=== PATIENT | female | born 1965 | race Caucasian/White ===

== ENCOUNTER → 2018-05-09 | Outpatient (CLI) | payer BC ==
[2015-05-01 17:55] VITALS: BP 164/97
[~2018-05-09] MED LIST: ZOLP10TA4 PO
--- NOTE | 2018-05-09 16:24 | RAD ---
MR of the left knee Indication: Left knee pain for 2 weeks. No known injury. Technique: The standard multiplanar sequences are obtained. FINDINGS: Artifact: No significant image degradation. Medial meniscus:Intact. Lateral meniscus: Intact. Anterior cruciate ligament: Intact Posterior cruciate ligament: Intact Medial collateral ligament: Intact. Lateral structures: * Iliotibial band: Intact. * Lateral collateral ligament: Intact. * Biceps femoris tendon: Intact * Popliteus tendon attachment: Intact Extensive mechanism: * Patellar tendon: Intact * Quadriceps tendon: Intact * Retinacular structures: Intact Fluid: Small joint effusion. Trace Reza's cyst. Mild disorganized fluid tracking along the posterior popliteus. Intra-articular bodies: None visualized Joint compartments * patellofemoral joint:Intact * medial compartment: Moderate to severe chondromalacia at the weightbearing medial femoral condyle with small subchondral cysts. * lateral compartment:Intact Bones: No significant lesion or acute fracture. Soft tissue: Mild edema within the infrapatellar fat. Impression: 1. 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 2. Mild fluid/hemorrhage tracking along the posterior popliteus muscle. Electronically signed by: Salbador Wylie MD (05/09/2018 4:21 PM) [facility]
== END | disposition home or self-care (01) ==
LOC: MRI 14:55
PROVIDERS: ATTEND Family Medicine Sports Medicine
DX: M17.12 Unilateral primary osteoarthritis, left knee (principal); M94.262 Chondromalacia, left knee; M25.462 Effusion, left knee; I10 Essential (primary) hypertension; R60.0 Localized edema; Z88.0 Allergy status to penicillin; Z90.710 Acquired absence of both cervix and uterus
CPT/HCPCS: 73721

== ENCOUNTER 2018-06-17 15:07 | Emergency (ER) | payer BC ==
[~2018-06-17] VITALS: Ht 170.2 cm; Wt 73.9 kg
--- NOTE | 2018-06-17 15:43 | PHYS DOC ---
Past Medical History Past Medical History: Hypertension Past Surgical History: Hysterectomy Additional Past Surgical Histo: carpal tunnel Alcohol Use: None Drug Use: None Adult General Chief Complaint Chief Complaint: HEADACHE HPI HPI Patient is a 53 year old [f__sex] who presents with [] Review of Systems Review of Systems Constitutional: Denies fever or chills [] Eyes: Denies change in visual acuity, redness, or eye pain [] HENT: Denies nasal congestion or sore throat [] Respiratory: Denies cough or shortness of breath [] Cardiovascular: No additional information not addressed in HPI [] GI: Denies abdominal pain, nausea, vomiting, bloody stools or diarrhea [] : Denies dysuria or hematuria [] Musculoskeletal: Denies back pain or joint pain [] Integument: Denies rash or skin lesions [] Neurologic: Denies headache, focal weakness or sensory changes [] Endocrine: Denies polyuria or polydipsia [] All other systems were reviewed and found to be within normal limits, except as documented in this note. Current Medications Current Medications Current Medications Medications (Trade) Dose Ordered Sig/Zeeshan Start Time Stop Time Status Last Admin Dose Admin Dexamethasone Sodium Phosphate (Decadron) 10 mg 1X ONCE 06/17/18 16:00 06/17/18 16:01 DC Diphenhydramine HCl (Benadryl) 25 mg 1X ONCE 06/17/18 16:00 06/17/18 16:01 DC Metoclopramide HCl (Reglan Vial) 10 mg 1X ONCE 06/17/18 16:00 06/17/18 16:01 DC Sodium Chloride 1,000 ml @ 1,000 mls/hr 1X ONCE 06/17/18 16:00 06/17/18 16:59 Allergies Allergies Allergies Coded Allergies Type Severity Reaction Last Updated Verified Penicillins Allergy Intermediate 03/10/14 Yes Physical Exam Physical Exam Constitutional: Well developed, well nourished, no acute distress, non-toxic appearance. [] HENT: Normocephalic, atraumatic, bilateral external ears normal, oropharynx moist, no oral exudates, nose normal. [] Eyes: PERRLA, EOMI, conjunctiva normal, no discharge. [] Neck: Normal range of motion, no tenderness, supple, no stridor. [] Cardiovascular:Heart rate regular rhythm, no murmur [] Lungs & Thorax: Bilateral breath sounds clear to auscultation [] Abdomen: Bowel sounds normal, soft, no tenderness, no masses, no pulsatile masses. [] Skin: Warm, dry, no erythema, no rash. [] Back: No tenderness, no CVA tenderness. [] Extremities: No tenderness, no cyanosis, no clubbing, ROM intact, no edema. [] Neurologic: Alert and oriented X 3, normal motor function, normal sensory function, no focal deficits noted. [] Psychologic: Affect normal, judgement normal, mood normal. [] Current Patient Data Vital Signs Vital Signs Date Time Temp Pulse Resp B/P (MAP) Pulse Ox O2 Delivery O2 Flow Rate FiO2 06/17/18 16:01 98.4 88 18 174/104 (127) 99 Room Air 98.4 Lab Values Laboratory Tests Test 06/17/18 15:20 06/17/18 15:40 Urine Collection Type Unknown Urine Color Yellow Urine Clarity Clear Urine pH 5.5 Urine Specific [place] 1.025 Urine Protein Negative mg/dL (NEG-TRACE) Urine Glucose (UA) Negative mg/dL (NEG) Urine Ketones (Stick) Negative mg/dL (NEG) Urine Blood Trace (NEG) Urine Nitrite Negative (NEG) Urine Bilirubin Negative (NEG) Urine Urobilinogen Dipstick 1.0 mg/dL (0.2 mg/dL) Urine Leukocyte Esterase Negative (NEG) Urine RBC 1-2 /HPF (0-2) Urine WBC 1-4 /HPF (0-4) Urine Squamous Epithelial Cells Few /LPF Urine Bacteria 0 /HPF (0-FEW) Urine Hyaline Casts Few /HPF Urine Mucus Mod /LPF White Blood Count 11.1 x10^3/uL (4.0-11.0) H Red Blood Count 4.66 x10^6/uL (3.50-5.40) Hemoglobin 13.4 g/dL (12.0-15.5) Hematocrit 39.1 % (36.0-47.0) Mean Corpuscular Volume 84 fL (79-100) Mean Corpuscular Hemoglobin 29 pg (25-35) Mean Corpuscular Hemoglobin Concent 34 g/dL (31-37) Red Cell Distribution Width 13.8 % (11.5-14.5) Platelet Count 335 x10^3/uL (140-400) Neutrophils (%) (Auto) 66 % (31-73) Lymphocytes (%) (Auto) 25 % (24-48) Monocytes (%) (Auto) 7 % (0-9) Eosinophils (%) (Auto) 1 % (0-3) Basophils (%) (Auto) 1 % (0-3) Neutrophils # (Auto) 7.4 x10^3uL (1.8-7.7) Lymphocytes # (Auto) 2.8 x10^3/uL (1.0-4.8) Monocytes # (Auto) 0.7 x10^3/uL (0.0-1.1) Eosinophils # (Auto) 0.1 x10^3/uL (0.0-0.7) Basophils # (Auto) 0.1 x10^3/uL (0.0-0.2) Sodium Level 142 mmol/L (136-145) Potassium Level 3.3 mmol/L (3.5-5.1) L Chloride Level 103 mmol/L (98-107) Carbon Dioxide Level 27 mmol/L (21-32) Anion Gap 12 (6-14) Blood Urea Nitrogen 19 mg/dL (7-20) Creatinine 0.9 mg/dL (0.6-1.0) Estimated GFR (Cockcroft-Gault) 65.8 BUN/Creatinine Ratio 21 (6-20) H Glucose Level 99 mg/dL (70-99) Calcium Level 9.7 mg/dL (8.5-10.1) Magnesium Level 2.4 mg/dL (1.8-2.4) Total Bilirubin 0.5 mg/dL (0.2-1.0) Aspartate Amino Transferase (AST) 24 U/L (15-37) Alanine Aminotransferase (ALT) 51 U/L (14-59) Alkaline Phosphatase 123 U/L (46-116) H Creatine Kinase 97 U/L (26-192) Creatine Kinase MB (Mass) 1.0 ng/mL (0.0-3.6) Creatine Kinase MB Relative Index 1.0 % (0-4) Troponin I Quantitative < 0.017 ng/mL (0.000-0.055) Total Protein 8.3 g/dL (6.4-8.2) H Albumin 4.2 g/dL (3.4-5.0) Albumin/Globulin Ratio 1.0 (1.0-1.7) Laboratory Tests 06/17/18 15:40 Laboratory Tests 06/17/18 15:40 EKG EKG @1524: NSR at 82bpm, NO ST elevation Radiology/Procedures Radiology/Procedures PROCEDURE: CT HEAD WO CONTRAST CT HEAD WO CONTRAST History: Headache, eye twitching, facial droop Comparison: July 23, 2008 Technique: Noncontrast CT imaging was performed of the head. Exposure: One or more of the following individualized dose reduction techniques were utilized for this examination: 1. Automated exposure control 2. Adjustment of the mA and/or kV according to patient size 3. Use of iterative reconstruction technique. Findings: No acute extra-axial or parenchymal hemorrhage is identified. There is no significant intra-axial mass effect, midline shift, or extra-axial fluid collection. The tabor-white differentiation of the major vascular territories is preserved. The ventricles, sulci, and cisterns are within normal limits in size and configuration. The mastoid air cells and the visualized paranasal sinuses are aerated. No acute calvarial abnormality is identified. Impression: 1. No acute intracranial abnormality is identified. Electronically signed by: Viral Zamudio MD (06/17/2018 4:01 PM) PROCEDURE: PORTABLE CHEST 1V Single view of the chest. 06/17/2018 3:43 PM Indication: weakness, cough Comparison: Chest radiograph January 23, 2017 Findings: There is no focal consolidation. There is no pleural effusion or pneumothorax. The cardiomediastinal silhouette and pulmonary vasculature are within normal limits. No acute osseous abnormalities are seen. Impression: No evidence of acute cardiopulmonary process. Electronically signed by: Heath Gomez MD (06/17/2018 4:07 PM) [facility] Course & Med Decision Making Course & Med Decision Making Pertinent Labs and Imaging studies reviewed. (See chart for details) [] Dragon Disclaimer Dragon Disclaimer This electronic medical record was generated, in whole or in part, using a voice recognition dictation system. Departure Departure Impression: Primary Impression: Headache Additional Impressions: Right facial numbness Right leg weakness Disposition: ADMITTED INPATIENT Admitting Physician: Renu Nye Condition: GUARDED Referrals: UNKNOWN PCP NAME (PCP) NIHSS Stroke Scale NIH Stroke Scale: NIH Stroke Scale Response (Comments) Value Level of Consciousness: 0 Alert/Responsive 0 LOC Questions: 0 Answers both correctly 0 LOC Commands: 0 Performs both tasks 0 Best Gaze: 0 Normal 0 Visual: 0 No visual loss 0 Facial Palsy: 0 Normal, symmetrical 0 Motor - Left Arm 0 No drift 0 Motor - Right Arm 0 No drift 0 Motor - Left Leg 0 No drift 0 Motor: Right Leg 1 Drift but can hold 1 Limb Ataxia: 0 Absent 0 Sensory: 1 Mid to moderate loss 1 Best Language: 0 Normal 0 Dysathria: 0 Normal 0 Extinction and Inattention: 0 Normal 0 Total 2 Problem Qualifiers Primary Impression: Headache Headache type: unspecified Headache chronicity pattern: unspecified pattern Intractability: intractable Qualified Codes: R51 - Headache ROBERTO ONEIL DO Jun 17, 2018 15:43
[2018-06-17 15:52] LABS: BILIRUBIN,URINE NEGATIVE (NEG); CLARITY,URINE CLEAR; COLOR,URINE YELLOW; NITRITE,URINE NEGATIVE (NEG); PH,URINE 5.5; PROTEIN,URINE NEGATIVE (NEG-TRACE)
--- NOTE | 2018-06-17 15:53 | EKG ---
[facility] [address] [place] [address] Test Date: 2018-06-17 Test Time: 15:24:52 Pat Name: ARACELY BERGER Department: Room: Gender: F Car Painter: : 1965 Requested By: ROBERTO ONEIL Order Number: [id number] Reading MD: Stevan Valencia MD Measurements Intervals [place] Rate: 81 P: 47 MT: 170 QRS: -2 QRSD: 80 T: 26 QT: 358 QTc: 421 Interpretive Statements SINUS RHYTHM Electronically Signed On 06-18-2018 10:08:02 CDT by Stevan Valencia MD
[2018-06-17 15:57] LABS: BASO # 0.1 x10^3/uL (0.0-0.2); BASO % 1 % (0-3); EOS # 0.1 x10^3/uL (0.0-0.7); EOS % 1 % (0-3); HEMATOCRIT 39.1 % (36.0-47.0); HEMOGLOBIN 13.4 g/dL (12.0-15.5); LYMPH # 2.8 x10^3/uL (1.0-4.8); LYMPH % 25 % (24-48); MEAN CORPUSCULAR HEMOGLOBIN 29 pg (25-35); MEAN CORPUSCULAR HGB CONC 34 g/dL (31-37); MEAN CORPUSCULAR VOLUME 84 fL (79-100); MONO # 0.7 x10^3/uL (0.0-1.1); MONO % 7 % (0-9); NEUT # 7.4 x10^3uL (1.8-7.7); NEUT % 66 % (31-73); PLATELET COUNT 335 x10^3/uL (140-400); RED BLOOD COUNT 4.66 x10^6/uL (3.50-5.40); RED CELL DISTRIBUTION WIDTH 13.8 % (11.5-14.5); WHITE BLOOD COUNT 11.1 x10^3/uL (4.0-11.0)
[2018-06-17] MEDS ORDERED: IV NORMAL SALINE 1000ML BAG 1,000 ML IV ONE (16:00)
[2018-06-17] MEDS ORDERED: DEXAMETHASONE SOD PHOS 20 MG/5 ML VIAL. IV ONE (16:00)
[2018-06-17] MEDS ORDERED: diphenhydrAMINE 50 MG/ML VIAL IVP ONE (16:00)
[2018-06-17] MEDS ORDERED: METOCLOPRAMIDE HCL 10 MG/2 ML VIAL. IV ONE (16:00)
[2018-06-17 16:05] LABS: BACTERIA,URINE 0 /HPF (0-FEW); SQUAMOUS EPITHELIAL CELL,UR FEW /LPF
--- NOTE | 2018-06-17 16:05 | RAD ---
CT HEAD WO CONTRAST History: Headache, eye twitching, facial droop Comparison: July 23, 2008 Technique: Noncontrast CT imaging was performed of the head. Exposure: One or more of the following individualized dose reduction techniques were utilized for this examination: 1. Automated exposure control 2. Adjustment of the mA and/or kV according to patient size 3. Use of iterative reconstruction technique. Findings: No acute extra-axial or parenchymal hemorrhage is identified. There is no significant intra-axial mass effect, midline shift, or extra-axial fluid collection. The tabor-white differentiation of the major vascular territories is preserved. The ventricles, sulci, and cisterns are within normal limits in size and configuration. The mastoid air cells and the visualized paranasal sinuses are aerated. No acute calvarial abnormality is identified. Impression: 1. No acute intracranial abnormality is identified. Electronically signed by: Viral Zamudio MD (06/17/2018 4:01 PM) [facility]
[2018-06-17 16:06] LABS: HYALINE CASTS, URINE FEW /HPF
--- NOTE | 2018-06-17 16:10 | RAD ---
Single view of the chest. 06/17/2018 3:43 PM Indication: weakness, cough Comparison: Chest radiograph January 23, 2017 Findings: There is no focal consolidation. There is no pleural effusion or pneumothorax. The cardiomediastinal silhouette and pulmonary vasculature are within normal limits. No acute osseous abnormalities are seen. Impression: No evidence of acute cardiopulmonary process. Electronically signed by: Heath Gomez MD (06/17/2018 4:07 PM) [facility]
[2018-06-17 16:11] LABS: CALCIUM 9.7 mg/dL (8.5-10.1); CREATININE 0.9 mg/dL (0.6-1.0); GFR 65.8; POTASSIUM 3.3 mmol/L (3.5-5.1)
[2018-06-17 16:17] LABS: ALBUMIN 4.2 g/dL (3.4-5.0); MAGNESIUM 2.4 mg/dL (1.8-2.4); TOTAL BILIRUBIN 0.5 mg/dL (0.2-1.0); TOTAL PROTEIN 8.3 g/dL (6.4-8.2)
[2018-06-17] MEDS ORDERED: POTASSIUM CHLORIDE 20 MEQ TABLET.ER. PO ONE (16:45)
[2018-06-17] MEDS ORDERED: ASPIRIN 325 MG TABLET PO ONE (16:45)
[2018-06-17] MEDS ORDERED: ONDANSETRON PF 4 MG/2 ML VIAL. IV PRN (16:45)
[2018-06-17] MEDS ORDERED: ZOLPIDEM 5 MG TABLET. PO PRN (17:00)
[2018-06-17] MEDS ORDERED: SUMAtriptan SUCC 6 MG/0.5 ML VIAL. SQ ONE (17:00)
[2018-06-17] MEDS ORDERED: SUMAtriptan SUCCINATE 25 MG TABLET PO PRN (17:00)
[2018-06-17 17:30] VITALS: BP 168/99
--- NOTE | 2018-06-17 17:38 | PDOC2 ---
CONSULT Date of Consult Date of Consult DATE: 06/17/18 TIME: 17:34 Reason for Consult Reason for Consult: headache, eval for admit Referring Physician Referring Physician: ER Source Source: Chart review, Patient History of Present Illness Reason for Visit: right sided headache behind the right eye. stabbing pain with a more constant nature. with some blurry vision, no aura. then, after headache, she had left sided weakness, arm more than leg, but was transient, and possibly when the headache was the worse. opiate pain med given in ER for headache, and her symptoms resolved, she reported full resolution and wanted to go home, signed out AMA Past Medical History Cardiovascular: No pertinent hx Pulmonary: No pertinent hx GI: No pertinent hx Family History Family History: No Significant Social History Drugs: None Current Problem List Problem List Problems Medical Problems: (1) Headache Status: Acute (2) Right facial numbness Status: Acute (3) Right leg weakness Status: Acute Current Medications Current Medications Current Medications Sodium Chloride 1,000 ml @ 1,000 mls/hr 1X ONCE IV Last administered on at 16:36; Start 06/17/18 at 16:00; Stop 06/17/18 at 16:59; Status DC Dexamethasone Sodium Phosphate (Decadron) 10 mg 1X ONCE IV Last administered on 06/17/18at 16:37; Start 06/17/18 at 16:00; Stop 06/17/18 at 16:01; Status DC Metoclopramide HCl (Reglan Vial) 10 mg 1X ONCE IV Last administered on at 16:36; Start 06/17/18 at 16:00; Stop 06/17/18 at 16:01; Status DC Diphenhydramine HCl (Benadryl) 25 mg 1X ONCE IVP Last administered on at 16:37; Start 06/17/18 at 16:00; Stop 06/17/18 at 16:01; Status DC Aspirin (Yvette Aspirin) 325 mg 1X ONCE PO ; Start 06/17/18 at 16:45; Stop 06/17 at 16:46; Status DC Ondansetron HCl (Zofran) 4 mg PRN Q8HRS PRN IV NAUSEA/VOMITING; Start 06/17/18 at 16:45; Stop 06/18/18 at 16:44 Potassium Chloride (Klor-Con) 40 meq 1X ONCE PO ; Start 06/17/18 at 16:45; Stop 06/17/18 at 16:46; Status DC Zolpidem Tartrate (Ambien) 5 mg PRN QHS PRN PO INSOMNIA; Start 06/17/18 at 17: 00 Sumatriptan Succinate (Imitrex) 6 mg 1X ONCE SQ ; Start 06/17/18 at 17:00; Stop 06/17/18 at 17:01; Status DC Sumatriptan Succinate (Imitrex) 25 mg Q8HRS PRN PO headache; Start 06/17/18 at 17:00 Active Scripts Active Reported Zolpidem Tartrate 10 Mg Tablet 10 Mg PO PRN QHS PRN Allergies Allergies: Coded Allergies: Penicillins (Verified Allergy, Intermediate, 03/10/14) ROS General: YES: Fatigue, Malaise PSYCHOLOGICAL ROS: YES: Sleep disturbances Eyes: No Blurry vision, No Decreased vision, No Double vision, No Dry eyes, No Excessive tearing, No Eye Pain, No Itchy Eyes, No Loss of vision, No Photophobia , No Scotomata, No Uses contacts, No Uses glasses, No Other HEENT: YES: Heacaches, Visual Changes Respiratory: No: Cough, Hemoptysis, Orthopnea, Pleuritic Pain, Shortness of breath, SOB with excertion, Sputum Changes, Stridor, Tachypnea, Wheezing, Other Cardiovascular: No Chest Pain, No Palpitations, No Orthopnea, No Paroxysmal Noc. Dyspnea, No Edema, No Lt Headedness, No Other Genitourinary: No Dysuria, No Frequency, No Incontinence, No Hematuria, No Retention, No Discharge, No Urgency, No Pain, No Flank Pain, No Other, No , No , No , No , No , No , No Musculoskeletal: No Gait Disturbance, No Joint Pain, No Joint Stiffness, No Joint Swelling, No Muscle Pain, No Muscular Weakness, No Pain In:, No Swelling In:, No Other Neurological: Yes Dizziness Skin: No Dry Skin, No Eczema, No Hair Changes, No Lumps, No Mole Changes, No Mottling, No Nail Changes, No Pruritus, No Rash, No Skin Lesion Changes, No Other, No Acne Physical Exam General: Alert, Oriented X3, Cooperative, No acute distress HEENT: Atraumatic, PERRLA, EOMI, Mucous membr. moist/pink Lungs: Other Heart: Regular rate Abdomen: Normal bowel sounds Extremities: No clubbing, No edema Skin: No significant lesion Neuro: Normal speech, Normal tone Psych/Mental Status: Mood NL Vitals VITALS Vital Signs Date Time Temp Pulse Resp B/P (MAP) Pulse Ox O2 Delivery O2 Flow Rate FiO2 06/17/18 16:01 98.4 88 18 174/104 (127) 99 Room Air 98.4 Labs Labs Laboratory Tests Test 06/17/18 15:20 06/17/18 15:40 Urine Collection Type Unknown Urine Color Yellow Urine Clarity Clear Urine pH 5.5 Urine Specific [place] 1.025 Urine Protein Negative mg/dL (NEG-TRACE) Urine Glucose (UA) Negative mg/dL (NEG) Urine Ketones (Stick) Negative mg/dL (NEG) Urine Blood Trace (NEG) Urine Nitrite Negative (NEG) Urine Bilirubin Negative (NEG) Urine Urobilinogen Dipstick 1.0 mg/dL (0.2 mg/dL) Urine Leukocyte Esterase Negative (NEG) Urine RBC 1-2 /HPF (0-2) Urine WBC 1-4 /HPF (0-4) Urine Squamous Epithelial Cells Few /LPF Urine Bacteria 0 /HPF (0-FEW) Urine Hyaline Casts Few /HPF Urine Mucus Mod /LPF White Blood Count 11.1 x10^3/uL (4.0-11.0) Red Blood Count 4.66 x10^6/uL (3.50-5.40) Hemoglobin 13.4 g/dL (12.0-15.5) Hematocrit 39.1 % (36.0-47.0) Mean Corpuscular Volume 84 fL (79-100) Mean Corpuscular Hemoglobin 29 pg (25-35) Mean Corpuscular Hemoglobin Concent 34 g/dL (31-37) Red Cell Distribution Width 13.8 % (11.5-14.5) Platelet Count 335 x10^3/uL (140-400) Neutrophils (%) (Auto) 66 % (31-73) Lymphocytes (%) (Auto) 25 % (24-48) Monocytes (%) (Auto) 7 % (0-9) Eosinophils (%) (Auto) 1 % (0-3) Basophils (%) (Auto) 1 % (0-3) Neutrophils # (Auto) 7.4 x10^3uL (1.8-7.7) Lymphocytes # (Auto) 2.8 x10^3/uL (1.0-4.8) Monocytes # (Auto) 0.7 x10^3/uL (0.0-1.1) Eosinophils # (Auto) 0.1 x10^3/uL (0.0-0.7) Basophils # (Auto) 0.1 x10^3/uL (0.0-0.2) Sodium Level 142 mmol/L (136-145) Potassium Level 3.3 mmol/L (3.5-5.1) Chloride Level 103 mmol/L (98-107) Carbon Dioxide Level 27 mmol/L (21-32) Anion Gap 12 (6-14) Blood Urea Nitrogen 19 mg/dL (7-20) Creatinine 0.9 mg/dL (0.6-1.0) Estimated GFR (Cockcroft-Gault) 65.8 BUN/Creatinine Ratio 21 (6-20) Glucose Level 99 mg/dL (70-99) Calcium Level 9.7 mg/dL (8.5-10.1) Magnesium Level 2.4 mg/dL (1.8-2.4) Total Bilirubin 0.5 mg/dL (0.2-1.0) Aspartate Amino Transf (AST/SGOT) 24 U/L (15-37) Alanine Aminotransferase (ALT/SGPT) 51 U/L (14-59) Alkaline Phosphatase 123 U/L (46-116) Creatine Kinase 97 U/L (26-192) Creatine Kinase MB (Mass) 1.0 ng/mL (0.0-3.6) Creatine Kinase MB Relative Index 1.0 % (0-4) Troponin I Quantitative < 0.017 ng/mL (0.000-0.055) Total Protein 8.3 g/dL (6.4-8.2) Albumin 4.2 g/dL (3.4-5.0) Albumin/Globulin Ratio 1.0 (1.0-1.7) Laboratory Tests Test 06/17/18 15:20 06/17/18 15:40 Urine Collection Type Unknown Urine Color Yellow Urine Clarity Clear Urine pH 5.5 Urine Specific [place] 1.025 Urine Protein Negative mg/dL (NEG-TRACE) Urine Glucose (UA) Negative mg/dL (NEG) Urine Ketones (Stick) Negative mg/dL (NEG) Urine Blood Trace (NEG) Urine Nitrite Negative (NEG) Urine Bilirubin Negative (NEG) Urine Urobilinogen Dipstick 1.0 mg/dL (0.2 mg/dL) Urine Leukocyte Esterase Negative (NEG) Urine RBC 1-2 /HPF (0-2) Urine WBC 1-4 /HPF (0-4) Urine Squamous Epithelial Cells Few /LPF Urine Bacteria 0 /HPF (0-FEW) Urine Hyaline Casts Few /HPF Urine Mucus Mod /LPF White Blood Count 11.1 x10^3/uL (4.0-11.0) Red Blood Count 4.66 x10^6/uL (3.50-5.40) Hemoglobin 13.4 g/dL (12.0-15.5) Hematocrit 39.1 % (36.0-47.0) Mean Corpuscular Volume 84 fL (79-100) Mean Corpuscular Hemoglobin 29 pg (25-35) Mean Corpuscular Hemoglobin Concent 34 g/dL (31-37) Red Cell Distribution Width 13.8 % (11.5-14.5) Platelet Count 335 x10^3/uL (140-400) Neutrophils (%) (Auto) 66 % (31-73) Lymphocytes (%) (Auto) 25 % (24-48) Monocytes (%) (Auto) 7 % (0-9) Eosinophils (%) (Auto) 1 % (0-3) Basophils (%) (Auto) 1 % (0-3) Neutrophils # (Auto) 7.4 x10^3uL (1.8-7.7) Lymphocytes # (Auto) 2.8 x10^3/uL (1.0-4.8) Monocytes # (Auto) 0.7 x10^3/uL (0.0-1.1) Eosinophils # (Auto) 0.1 x10^3/uL (0.0-0.7) Basophils # (Auto) 0.1 x10^3/uL (0.0-0.2) Sodium Level 142 mmol/L (136-145) Potassium Level 3.3 mmol/L (3.5-5.1) Chloride Level 103 mmol/L (98-107) Carbon Dioxide Level 27 mmol/L (21-32) Anion Gap 12 (6-14) Blood Urea Nitrogen 19 mg/dL (7-20) Creatinine 0.9 mg/dL (0.6-1.0) Estimated GFR (Cockcroft-Gault) 65.8 BUN/Creatinine Ratio 21 (6-20) Glucose Level 99 mg/dL (70-99) Calcium Level 9.7 mg/dL (8.5-10.1) Magnesium Level 2.4 mg/dL (1.8-2.4) Total Bilirubin 0.5 mg/dL (0.2-1.0) Aspartate Amino Transf (AST/SGOT) 24 U/L (15-37) Alanine Aminotransferase (ALT/SGPT) 51 U/L (14-59) Alkaline Phosphatase 123 U/L (46-116) Creatine Kinase 97 U/L (26-192) Creatine Kinase MB (Mass) 1.0 ng/mL (0.0-3.6) Creatine Kinase MB Relative Index 1.0 % (0-4) Troponin I Quantitative < 0.017 ng/mL (0.000-0.055) Total Protein 8.3 g/dL (6.4-8.2) Albumin 4.2 g/dL (3.4-5.0) Albumin/Globulin Ratio 1.0 (1.0-1.7) Assessment/Plan Assessment/Plan migrane headache left sided hemiparesis ER wanted to davis TIA, pt declined, left BONI FANG MD Jun 17, 2018 17:38
== END 2018-06-17 17:32 | disposition other institution (70) ==
LOC: ER 15:07 → 6 SOUTH 16:36 → UNDOADMIN 16:36 → ER 17:32
DX: R51 Headache (principal); R20.0 Anesthesia of skin; R53.1 Weakness; Z88.0 Allergy status to penicillin; I10 Essential (primary) hypertension; Z90.710 Acquired absence of both cervix and uterus
CPT/HCPCS: 36415; 70450; 71045; 80053; 81001; 82553; 83735; 84484; 85025; 93005; 96374; 96375; 99285; J1100; J1200; J2765; J7030

== ENCOUNTER → 2018-06-26 | Outpatient (CLI) | payer BC ==
[2018-06-17 17:30] VITALS: BP 168/99
--- NOTE | 2018-06-26 09:59 | RAD ---
MRI of the brain without contrast 06/26/2018 Clinical History: Headaches and blurred vision for 3 weeks. Technique: Unenhanced T1-weighted sagittal and axial, T2-weighted axial and coronal and FLAIR, gradient echo and diffusion-weighted axial images of the brain were obtained. Findings: Comparison is made to patient's CT scan of the head dated 06/17/2018. Additional comparison is made to patient's previous MRI of the brain dated 01/18/2011. There is generalized parenchymal atrophy. Patchy, confluent and multiple small focal areas of increased signal intensity are seen within the periventricular and subcortical white matter of both cerebral hemispheres on the FLAIR and T2-weighted images consistent most likely with areas of relatively mild small vessel ischemic disease. These have not significantly changed. No acute parenchymal abnormality is seen. No extra-axial fluid collection is seen. There is no MRI evidence of acute ischemia/infarction. The orbits are within normal limits. Mild to moderate mucosal thickening is seen scattered throughout the paranasal sinuses. There is a minimal left mastoid effusion. Normal flow voids are seen within the major vascular structures surrounding the brain parenchyma. Impression: No acute parenchymal abnormality is seen. Electronically signed by: Brian Gregory MD (06/26/2018 9:56 AM) [id number]
== END | disposition home or self-care (01) ==
LOC: MRI 08:18
PROVIDERS: ATTEND Nurse Practitioner Gerontology
DX: G31.89 Other specified degenerative diseases of nervous system (principal)
CPT/HCPCS: 70551

== ENCOUNTER → 2019-01-02 | Outpatient (CLI) | payer BC ==
--- NOTE | 2019-01-02 12:07 | KCIC ---
MRI Cervical Spine Without Contrast History: Radiculopathy of the upper extremity, right shoulder and arm pain, right upper extremity numbness for 2 weeks Technique: Multiplanar, multi sequential noncontrast MR imaging was performed of the cervical spine. Comparison: None Findings: There is some motion degradation. Cervical vertebral body stature is maintained. Cervical cord caliber is within normal limits without significant focal signal abnormality allowing for artifact. There is moderate to severe degenerative disc disease C5-6, minimally at C4-5 and C6-7. There is mild reversal of the lordotic curvature centered near C5. AP alignment is within normal limits. There is trace C5-6 endplate edema likely reactive/degenerative in etiology. C2-C3: Spinal canal and neural foramina are adequate. C3-C4: There is bilateral facet degenerative change greater on the left. There is very shallow posterior protrusion centrally. Spinal canal and neural foramina are adequate. C4-C5: There is minimal disc osteophyte complex. Spinal canal and neural foramina are adequate. There is mild facet degenerative change. C5-C6: There is minimal disc osteophyte complex and bulge. Spinal canal is overall adequate. There is uncovertebral density change greater on the left. There is bilateral facet degenerative change. Right neural foramen is adequate, moderate to severe narrowing of the left neural foramen. C6-C7: There is very minimal disc osteophyte complex and bulge greater in the left lateral recess. Central canal is adequate about 11 mm. There is [id number] narrowing of the left neural foramen, right neural foramen adequate. C7-T1: Spinal canal and neural foramina are adequate. Impression: 1. There is no significant cervical spinal stenosis. There is moderate to severe degenerative disc disease C5-6, minimally at C4-5 and C6-7 with spondylosis at the same levels. There is moderate to severe narrowing of the left C5-6 neural foramen, [id number] narrowing on the left at C6-7 in part from uncovertebral and facet degenerative change. Electronically signed by: Viral Zamudio MD (01/02/2019 12:04 PM) [id number]
== END | disposition home or self-care (01) ==
LOC: KCIC MRI 10:22
PROVIDERS: ATTEND Orthopaedic Surgery
DX: M48.02 Spinal stenosis, cervical region (principal); M50.323 Other cervical disc degeneration at C6-C7 level; M47.812 Spondylosis without myelopathy or radiculopathy, cervical region; M50.21 Other cervical disc displacement, high cervical region; M25.78 Osteophyte, vertebrae; M54.10 Radiculopathy, site unspecified
CPT/HCPCS: 72141

== ENCOUNTER → 2019-03-04 | Outpatient (CLI) | payer BC ==
--- NOTE | 2019-03-04 13:25 | KCIC ---
MR of the right shoulder HISTORY: Right shoulder pain. Biceps tendinitis. TECHNIQUE: Routine multiplanar sequences are obtained. FINDINGS: Acromioclavicular joint is minimally degenerative. Full-thickness tear of the supraspinatus tendon measures 1 cm AP diameter without significant retraction. Trace fluid in the subdeltoid bursa. Mild partial tearing of the upper subscapularis tendon. Small effusion in the subcoracoid bursa. No significant joint effusion. No evidence of labral tear or para labral cyst. No acute articular cartilage defect. The biceps tendon is intact. No bone destruction or acute fracture. IMPRESSION: 1. Small full-thickness rotator cuff tear of the anterior supraspinatus tendon. 2. Small subdeltoid and subcoracoid bursal effusions. Electronically signed by: Salbador Wylie MD (03/04/2019 1:22 PM) [facility]-[id number]
== END | disposition home or self-care (01) ==
LOC: KCIC MRI 10:19
PROVIDERS: ATTEND Orthopaedic Surgery
DX: S46.011A Strain of muscle(s) and tendon(s) of the rotator cuff of right shoulder, initial encounter (principal); M25.411 Effusion, right shoulder; M75.21 Bicipital tendinitis, right shoulder; X58.XXXA Exposure to other specified factors, initial encounter; Y93.89 Activity, other specified; Y92.89 Other specified places as the place of occurrence of the external cause; Y99.8 Other external cause status
CPT/HCPCS: 73221

== ENCOUNTER → 2019-06-03 | Outpatient (CLI) | payer BC ==
--- NOTE | 2019-06-03 17:36 | KCIC ---
EXAM: US extremity nonvascular-right forearm DATE: 06/03/2019 3:45 PM COMPARISON: None INDICATION: Mass lesion/swelling, characterize and localize TECHNIQUE: Longitudinal and transverse imaging with intermittent Doppler sampling completed with attention to right forearm FINDINGS/ IMPRESSION: Grayscale, color Doppler sonographic evaluation was performed in the region of patient's symptoms. Normal subcutaneous soft tissues and underlying muscles are identified. No discrete soft tissue mass is identified. Electronically signed by: Yan Jaramillo MD (06/03/2019 5:33 PM) [facility]
== END | disposition home or self-care (01) ==
LOC: KCIC US 15:02
PROVIDERS: ATTEND Orthopaedic Surgery
DX: R22.31 Localized swelling, mass and lump, right upper limb (principal)
CPT/HCPCS: 76881

== ENCOUNTER → 2019-07-16 | Outpatient (CLI) | payer BC ==
--- NOTE | 2019-07-16 14:39 | KCIC ---
MRI study of the right elbow without contrast Clinical indications: Right elbow lump since last February 2019. TECHNIQUE: Noncontrast MRI sequences of the right elbow were performed in all 3 planes. A vitamin E marker was placed on the left as indicated by the patient. FINDINGS: No soft tissue mass or abscess or soft tissue edema is seen in the area of the palpable lump as indicated by the vitamin E marker. There is no muscle herniation through the superficial muscular fascia in this area. The biceps and brachialis and triceps tendons are intact. There is edema of the brachialis muscle just proximal to the insertion of the the brachialis tendon onto the proximal ulna. This is consistent with a grade 1 muscle strain or myositis. A small elbow joint effusion is seen. No fracture or marrow infiltrative process is seen. No focal osteochondral abnormality is evident. No bone contusion is evident. There is edema of the common extensor tendon mechanism at the attachment to the lateral epicondyle. There is high-grade partial tear of this tendon at the attachment. The common flexor tendon mechanism is intact. The posterior aspect of the radial collateral ligament is intact. The ulnar collateral ligament and lateral ulnar collateral ligament and annular ligament are intact. No olecranon bursitis is seen. IMPRESSION: With regard to the palpable lump, no soft tissue mass is seen. Deep to this area is muscle edema of the distal brachialis muscle just proximal to the brachialis tendon attachment to the proximal ulna. This is consistent with myositis or grade 1 muscle strain. High-grade partial tear of the common extensor tendon mechanism at the attachment to the lateral epicondyle. This involves the anterior aspect of the radial collateral ligament. The posterior radial collateral ligament is intact otherwise. Electronically signed by: Raffi Rahman MD (07/16/2019 2:36 PM) [facility]-KCIC2
== END | disposition home or self-care (01) ==
LOC: KCIC MRI 09:47
PROVIDERS: ATTEND Orthopaedic Surgery
DX: S56.511A Strain of other extensor muscle, fascia and tendon at forearm level, right arm, initial encounter (principal); M25.421 Effusion, right elbow; D17.79 Benign lipomatous neoplasm of other sites; X58.XXXA Exposure to other specified factors, initial encounter; Y93.89 Activity, other specified; Y92.89 Other specified places as the place of occurrence of the external cause; Y99.8 Other external cause status
CPT/HCPCS: 73221

== ENCOUNTER → 2020-01-05 | Outpatient (CLI) | payer BC ==
[~2020-01-05] MED LIST changes: +CONTRAST GIVEN. MC PRN; +GADOTERATE 5 MMOL/10ML VIAL. INT ART ONE; +IOHEXOL 300 MG/ML 50 ML VIAL. IART ONE; +LIDOCAINE 1% Multi-Dose 20 ML VIAL. ID ONE
--- NOTE | 2020-01-05 13:29 | KCIC ---
MRI arthrogram of the right shoulder HISTORY: Right shoulder pain. Rotator cuff repair March 2019. TECHNIQUE: Routine 3 plane sequences are obtained after intra-articular contrast injection. COMPARISON: None are available FINDINGS: Acromioclavicular joint appears intact. Postsurgical changes are identified at the rotator cuff. Suture anchors at the proximal humerus. There is a small defect of the articular aspect of the supraspinatus repair with what appears to be some mildly retracted articular side tissue, raising the question of a articular side tear. There is no evidence of a complete through and through full-thickness defect although the remaining bursal side tissue is extremely thin, less than 1 mm, over an AP diameter of 1 cm.. Subscapularis tendon appears to be intact. Mild muscle atrophy. Contrast does enter the subdeltoid bursa, although that could just be due to lack of a postsurgical water tight seal. No evidence of labral tear or detachment. Biceps tendon is not visualized, could be due to prior surgery or tear. The superior labrum is mildly blunted. No acute fracture or aggressive bone destruction. No acute soft tissue abnormality. IMPRESSION: 1. Articular side defect of the repaired supraspinatus tendon with up to 1 cm retraction, raising the question of a partial-thickness tear. The overlying bursal side tissue appears intact but is very thin, less than 1 mm. No definite evidence of complete full-thickness rupture. 2. Nonvisualized biceps tendon. Electronically signed by: Salbador Wylie MD (01/05/2020 1:26 PM) [id number]
--- NOTE | 2020-01-05 13:31 | KCIC ---
PROCEDURE: Right shoulder injection using fluoroscopic guidance, prior to MR. HISTORY: Shoulder pain. TECHNIQUE: The procedure was explained to the patient as were potential risks, including among others infection, bleeding or allergic reaction. All questions were answered. Informed written and verbal consent was obtained. The shoulder was prepped and draped in the usual sterile manner. Following administration of local anesthetic, a 22-gauge needle was advanced into the anterior shoulder. Following negative aspiration, 12 cc of a solution of 5cc Omnipaque-300 contrast, 5 cc 1% lidocaine, 10 cc normal saline, and 0.1 cc gadolinium was injected without difficulty. The needle was removed. There was good hemostasis at the injection site. The patient left in stable condition without immediate complication. A single spot image is obtained. FLUOROSCOPY TIME:?32 seconds Contrast is seen to opacify the subacromial subdeltoid bursa during the injection. Note this could be due to lack of a postoperative water tight seal, rather than a tear of the rotator cuff. Electronically signed by: Salbador Wylie MD (01/05/2020 1:28 PM) [id number]
== END | disposition home or self-care (01) ==
LOC: KCIC 10:14
PROVIDERS: ATTEND Physician Assistant
DX: M25.511 Pain in right shoulder (principal)
CPT/HCPCS: 23350; 73222; 77002; A9575; J3490; Q9967; 73040

== ENCOUNTER → 2020-04-05 | Outpatient (CLI) | payer BC ==
[~2020-04-05] MED LIST changes: -CONTRAST GIVEN. MC PRN; -GADOTERATE 5 MMOL/10ML VIAL. INT ART ONE; -IOHEXOL 300 MG/ML 50 ML VIAL. IART ONE; -LIDOCAINE 1% Multi-Dose 20 ML VIAL. ID ONE
--- NOTE | 2020-04-05 08:25 | RAD ---
ABDOMEN LTD: 04/05/2020 7:30 AM Indication: 55 years old Female. Right upper quadrant abdominal pain . Comparison: None. TECHNIQUE: Sonographic evaluation of the right upper quadrant was performed utilizing grayscale and color Doppler imaging. FINDINGS: Liver: There is diffuse increased echogenicity of the hepatic parenchyma compatible with diffuse hepatocellular disease, most commonly due to steatosis. This decreases the sensitivity of ultrasound for the detection of focal hepatic lesions. There is a 1.5 cm cyst in the liver. No suspicious hepatic lesion. There is hepatopedal flow within the portal venous system. Right hepatic lobe measures 17.5 cm. Biliary system: CBD measures 3.4 mm. There is no intrahepatic or extrahepatic biliary dilatation. Gallbladder: No gallstones, wall thickening or pericholecystic fluid. . Sonographic Zuñiga sign: Negative Pancreas: Visualized head and uncinate process are unremarkable. Body and tail are not visualized. Right kidney: 11.4 x 4.6 x 4.5 cm No hydronephrosis. Normal echotexture without focal mass or renal calculus. Free fluid:None. IVC patent IMPRESSION: 1. Increased echogenicity of the hepatic parenchyma suggestive of hepatocellular disease, most commonly hepatic steatosis. This limits evaluation for underlying hepatic lesions. There is a 1.5 cm simple cyst. 2. No cholelithiasis nor sonographic evidence for acute cholecystitis. Electronically signed by: Bre Piña MD (04/05/2020 8:22 AM) [facility]7
== END | disposition home or self-care (01) ==
LOC: US 07:13
PROVIDERS: ATTEND Family Medicine
DX: R10.11 Right upper quadrant pain (principal); K76.0 Fatty (change of) liver, not elsewhere classified; K76.89 Other specified diseases of liver
CPT/HCPCS: 76705

== ENCOUNTER 2020-06-04 12:13 | Inpatient (IN) | payer BC ==
[~2020-06-04] VITALS: Ht 170.2 cm; Wt 72.0 kg
[2020-06-04] VITALS (10 sets, daily range): BP systolic 107–139; BP diastolic 65–82
[2020-06-04] MEDS ORDERED: IV NORMAL SALINE 1000ML BAG 1,000 ML IV SCH (12:22)
[2020-06-04] MEDS ORDERED: fentaNYL PF VIAL 100 MCG/2 ML VIAL IVP ONE (12:30)
--- NOTE | 2020-06-04 12:31 | PHYS DOC ---
Past Medical History Past Medical History: Hypertension Past Surgical History: Hysterectomy Additional Past Surgical Histo: carpal tunnel Smoking Status: Never Smoker Alcohol Use: None Drug Use: None General Adult EDM: Chief Complaint: ABDOMINAL PAIN HPI: HPI: Patient is a 55 year old female who presents with 2 days of umbilical pain with radiation to the right lower quadrant. She states walking, bumps in the car or laying flat make it worse. She states that her pains at a 7 out of 10 and it is sharp. Patient denies nausea, vomiting, diarrhea, fever, headache, dizziness, back pain, dysuria symptoms, constipation, chest pain, shortness of breath. Patient has history of carpal tunnel and hypertension. Review of Systems: Review of Systems: Constitutional: Denies fever or chills. [] Eyes: Denies change in visual acuity. [] HENT: Denies nasal congestion or sore throat. [] Respiratory: Denies cough or shortness of breath. [] Cardiovascular: Denies chest pain or edema. [] GI: + umbilical and RLQ abdominal pain, denies nausea, vomiting, bloody stools or diarrhea. [] : Denies dysuria. [] Musculoskeletal: Denies back pain or joint pain. [] Integument: Denies rash. [] Neurologic: Denies headache, focal weakness or sensory changes. [] Endocrine: Denies polyuria or polydipsia. [] Lymphatic: Denies swollen glands. [] Psychiatric: Denies depression or anxiety. [] Heart Score: Risk Factors: Risk Factors: DM, Current or recent (<one month) smoker, HTN, HLP, family history of CAD, obesity. Risk Scores: Score 0 - 3: 2.5% MACE over next 6 weeks - Discharge Home Score 4 - 6: 20.3% MACE over next 6 weeks - Admit for Clinical Observation Score 7 - 10: 72.7% MACE over next 6 weeks - Early Invasive Strategies Current Medications: Current Medications Medications (Trade) Dose Ordered Sig/Zeeshan Start Time Stop Time Status Last Admin Dose Admin Fentanyl Citrate (Fentanyl 2ml Vial) 50 mcg 1X ONCE 06/04/20 12:30 06/04/20 12:31 UNV Sodium Chloride 1,000 ml @ 1,000 mls/hr Q1H 06/04/20 12:22 06/04/20 13:21 UNV Allergies: Allergies: Allergies Coded Allergies Type Severity Reaction Last Updated Verified Penicillins Allergy Intermediate 03/10/14 Yes Physical Exam: PE: Constitutional: Well developed, well nourished, no acute distress, non-toxic appearance. [] HENT: Normocephalic, atraumatic, bilateral external ears normal, oropharynx moist, no oral exudates, nose normal. [] Eyes: PERRLA, EOMI, conjunctiva normal, no discharge. [] Neck: Normal range of motion, no tenderness, supple, no stridor. [] Cardiovascular:Heart rate regular rhythm, no murmur [] Lungs & Thorax: Bilateral breath sounds clear to auscultation [] Abdomen: Bowel sounds normal, soft, Umbilical and RLQ tenderness, no masses, no pulsatile masses. [] Skin: Warm, dry, no erythema, no rash. [] Back: No tenderness, no CVA tenderness. [] Extremities: No tenderness, no cyanosis, no clubbing, ROM intact, no edema. [] Neurologic: Alert and oriented X 3, normal motor function, normal sensory function, no focal deficits noted. [] Psychologic: Affect normal, judgement normal, mood normal. [] EKG: EKG: [] Radiology/Procedures: Radiology/Procedures: [] Impression: [facility] [address] [place] [address] IMAGING REPORT Signed PATIENT: ARACELY BERGER AACCOUNT: [id number] : 1965 LOCATION: ER AGE: 55 SEX: F EXAM STATUS: PRE ER ORD. PHYSICIAN: MAXX HUSSEIN APRN REASON: Umbilical and right lower quad pain PROCEDURE: CT ABD PELV W/ IV CONTRST ONLY EXAMINATION: CT ABD PELV W/ IV CONTRST ONLY CLINICAL HISTORY: Umbilical and right lower quadrant pain TECHNIQUE: CT of the abdomen and pelvis was performed using standard technique, scanning from just above the dome of the diaphragm to the symphysis pubis following administration of intravenous contrast. Contrast: IV: 75 ml of Omnipaque 300 CT Dose Reduction Employed: One or more of the following individualized dose reduction techniques were utilized for this examination: 1. Automated exposure control 2. Adjustment of the mA and/or kV according to patient size 3. Use of iterative reconstruction technique. COMPARISON: Right upper quadrant ultrasound 03/06/2020, CT abdomen/pelvis 03/10/2014 FINDINGS: Lower thorax: Left basilar small old calcified granuloma. Liver: 1.7 cm hypoenhancing lesion in the right hepatic lobe compatible with a cyst. Similar sub-5 mm focus more inferiorly in the right hepatic lobe likely represents an additional small cyst. Biliary: No bile duct dilation. Spleen: No mass. No splenomegaly. Pancreas: No mass or duct dilation. Adrenals: No mass. Kidneys: No mass, calculus or hydronephrosis. GI tract: Dilated appendix measuring up to 1 cm in diameter with thickened winn and mild periappendiceal inflammatory stranding. No bowel wall thickening or dilation. Lymph nodes: Several prominent but nonenlarged lymph nodes in the right lower quadrant. Mesentery/Peritoneum: No ascites or mass. Retroperitoneum: No mass. Vasculature: The celiac axis and SMA are patent. The portal vein and branches, splenic vein, SMV, and hepatic veins are patent. No abdominal aortic or iliac artery aneurysm. Pelvis: No mass, ascites or fluid collection. Bones/Soft Tissues: No acute osseous abnormality. IMPRESSION: Uncomplicated acute appendicitis. Clinical findings discussed with MAXX HUSSEIN at 06/04/2020 1:43 PM. Electronically signed by: Fernie Motley DO (06/04/2020 1:47 PM) [id number] DICTATED and SIGNED BY: FERNIE MOTLEY DO DATE: 06/04/20 1347 Course & Med Decision Making: Course & Med Decision Making Pertinent Labs and Imaging studies reviewed. (See chart for details) Abdomen is soft but tender with palpation to umbilical and right lower abdomen. There is no rebound tenderness. She is ambulatory with a steady gait. Skin pink warm and dry. Alert and oriented x4. Speaks in full clear sentences. Bowel sounds present and normal. No CVA tenderness. Patient has begun to vomit and dry heaves. She was given Zofran in the ED. After Zofran was given patient has continued to dry heave. I have now ordered Compazine. She has received 1 L of normal saline in the ED. I have spoken to Dr. Tate concerning the patient's appendicitis. He states he will take her to surgery today. He states to give her Levaquin and Flagyl. I have also ordered a rapid COVID test. Patient last ate at around 630 this morning. Patient admitted by Dr. Richardson. [] Rita Disclaimer: Rita Disclaimer: This electronic medical record was generated, in whole or in part, using a voice recognition dictation system. Departure Departure Impression: Primary Impression: Appendicitis Qualified Codes: K35.80 - Unspecified acute appendicitis Disposition: ADMITTED INPATIENT Admitting Physician: JACQUES Condition: STABLE Referrals: PIYUSH CHAMPAGNE MD (PCP) Justicifation of Admission Dx: Justifications for Admission: Justification of Admission Dx: Yes Comments: Appendicitis MAXX HUSSEIN DOCTOR OF MEDICINE Jun 04, 2020 12:31
[2020-06-04 12:33] LABS: BILIRUBIN,URINE NEGATIVE (NEG); CLARITY,URINE CLEAR; COLOR,URINE YELLOW; NITRITE,URINE NEGATIVE (NEG); PROTEIN,URINE NEGATIVE (NEG-TRACE)
[2020-06-04 12:52] LABS: SQUAMOUS EPITHELIAL CELL,UR FEW /LPF
[2020-06-04 12:52] LABS: BASO # 0.1 x10^3/uL (0.0-0.2); BASO % 1 % (0-3); EOS # 0.1 x10^3/uL (0.0-0.7); EOS % 1 % (0-3); HEMATOCRIT 37.7 % (36.0-47.0); LYMPH # 1.7 x10^3/uL (1.0-4.8); LYMPH % 21 % (24-48); MEAN CORPUSCULAR HEMOGLOBIN 29 pg (25-35); MEAN CORPUSCULAR HGB CONC 35 g/dL (31-37); MEAN CORPUSCULAR VOLUME 83 fL (79-100); MONO # 0.6 x10^3/uL (0.0-1.1); MONO % 7 % (0-9); NEUT # 5.8 x10^3/uL (1.8-7.7); NEUT % 70 % (31-73); PLATELET COUNT 309 x10^3/uL (140-400); RED BLOOD COUNT 4.53 x10^6/uL (3.50-5.40); RED CELL DISTRIBUTION WIDTH 13.7 % (11.5-14.5); WHITE BLOOD COUNT 8.3 x10^3/uL (4.0-11.0)
[2020-06-04 12:53] LABS: BACTERIA,URINE 0 /HPF (0-FEW)
[2020-06-04 13:01] LABS: CALCIUM 9.1 mg/dL (8.5-10.1); CREATININE 0.9 mg/dL (0.6-1.0); GFR 65.2; PROTHROMBIN TIME PATIENT 12.1 SEC (11.7-14.0)
[2020-06-04] MEDS ORDERED: ONDANSETRON PF 4 MG/2 ML VIAL. ONE ×2 (13:01→17:03)
[2020-06-04 13:07] LABS: ALBUMIN 4.1 g/dL (3.4-5.0); ALBUMIN/GLOBULIN RATIO 1.2 (1.0-1.7); TOTAL BILIRUBIN 0.7 mg/dL (0.2-1.0); TOTAL PROTEIN 7.5 g/dL (6.4-8.2)
[2020-06-04] MEDS ORDERED: IOHEXOL 300 MG/ML 100ML VIAL. IV ONE (13:15)
[2020-06-04] MEDS ORDERED: ONDANSETRON PF 4 MG/2 ML VIAL. IVP ONE (13:15)
[2020-06-04] MEDS ORDERED: PROCHLORPERAZINE 10 MG/2 ML VIAL. IV ONE (13:45)
--- NOTE | 2020-06-04 13:50 | RAD ---
EXAMINATION: CT ABD PELV W/ IV CONTRST ONLY CLINICAL HISTORY: Umbilical and right lower quadrant pain TECHNIQUE: CT of the abdomen and pelvis was performed using standard technique, scanning from just above the dome of the diaphragm to the symphysis pubis following administration of intravenous contrast. Contrast: IV: 75 ml of Omnipaque 300 CT Dose Reduction Employed: One or more of the following individualized dose reduction techniques were utilized for this examination: 1. Automated exposure control 2. Adjustment of the mA and/or kV according to patient size 3. Use of iterative reconstruction technique. COMPARISON: Right upper quadrant ultrasound 03/06/2020, CT abdomen/pelvis 03/10/2014 FINDINGS: Lower thorax: Left basilar small old calcified granuloma. Liver: 1.7 cm hypoenhancing lesion in the right hepatic lobe compatible with a cyst. Similar sub-5 mm focus more inferiorly in the right hepatic lobe likely represents an additional small cyst. Biliary: No bile duct dilation. Spleen: No mass. No splenomegaly. Pancreas: No mass or duct dilation. Adrenals: No mass. Kidneys: No mass, calculus or hydronephrosis. GI tract: Dilated appendix measuring up to 1 cm in diameter with thickened winn and mild periappendiceal inflammatory stranding. No bowel wall thickening or dilation. Lymph nodes: Several prominent but nonenlarged lymph nodes in the right lower quadrant. Mesentery/Peritoneum: No ascites or mass. Retroperitoneum: No mass. Vasculature: The celiac axis and SMA are patent. The portal vein and branches, splenic vein, SMV, and hepatic veins are patent. No abdominal aortic or iliac artery aneurysm. Pelvis: No mass, ascites or fluid collection. Bones/Soft Tissues: No acute osseous abnormality. IMPRESSION: Uncomplicated acute appendicitis. Clinical findings discussed with MAXX HUSSEIN at 06/04/2020 1:43 PM. Electronically signed by: Fernie Balderas DO (06/04/2020 1:47 PM) [id number]
[2020-06-04] MEDS ORDERED: BUPIVACAINE-EPI 0.5%-1:200000 MPF 30 ML VIAL. ONE (14:29)
[2020-06-04] MEDS ORDERED: IV RINGERS,LACTATED 1000ML 1,000 ML IV SCH (14:39)
[2020-06-04] MEDS ORDERED: fentaNYL PF VIAL 100 MCG/2 ML VIAL IV PRN ×2 (14:45)
[2020-06-04] MEDS ORDERED: ONDANSETRON PF 4 MG/2 ML VIAL. IV PRN (14:45)
[2020-06-04] MEDS ORDERED: HYDROmorphone 2 MG/ML VIAL IV PRN (14:45)
[2020-06-04] MEDS ORDERED: LIDOCAINE 1% PF 2 ML VIAL. ID PRN (14:45)
[2020-06-04] MEDS ORDERED: MORPHINE SULFATE 2 MG/ML VIAL. IV PRN (14:45)
--- NOTE | 2020-06-04 15:32 | PDOC2 ---
CONSULT Date of Consult Date of Consult DATE: 06/04/20 TIME: 15:28 History of Present Illness Reason for Visit: The patient is a 55 year old female with a 3 day history of abdominal pain. The pain was in the mid abdomen initially but has localized to the RLQ. She reports nausea but no vomiting or fever. The ER evaluation is consistent with appendicitis. Past Medical History Cardiovascular: No pertinent hx Pulmonary: No pertinent hx GI: No pertinent hx Past Surgical History Past Surgical History: Hysterectomy Family History Family History: No Significant Social History No Drugs: None Current Problem List Problem List Problems Medical Problems: (1) Appendicitis Status: Acute Current Medications Current Medications Current Medications Sodium Chloride 1,000 ml @ 1,000 mls/hr Q1H IV Last administered on 06/04/20at 12:47; Start 06/04/20 at 12:22; Stop 06/04/20 at 13:21; Status DC Fentanyl Citrate (Fentanyl 2ml Vial) 50 mcg 1X ONCE IVP Last administered on 06/04/20at 12:48; Start 06/04/20 at 12:30; Stop 06/04/20 at 12:31; Status DC Ondansetron HCl (Zofran) 4 mg STK-MED ONCE .ROUTE ; Start 06/04/20 at 13:01; Stop 06/04/20 at 13:02; Status DC Ondansetron HCl (Zofran) 4 mg 1X ONCE IVP Last administered on 06/04/20at 13: 04; Start 06/04/20 at 13:15; Stop 06/04/20 at 13:16; Status DC Iohexol (Omnipaque 300 Mg/ml) 75 ml 1X ONCE IV Last administered on 06/04/20at 13:20; Start 06/04/20 at 13:15; Stop 06/04/20 at 13:16; Status DC Prochlorperazine Edisylate (Compazine) 10 mg 1X ONCE IV Last administered on 06/04/20at 13:45; Start 06/04/20 at 13:45; Stop 06/04/20 at 13:46; Status DC Levofloxacin/ Dextrose 150 ml @ 100 mls/hr 1X ONCE IV Last administered on 06/04/20at 14:28; Start 06/04/20 at 14:15; Stop 06/04/20 at 15:15; Status DC Metronidazole 100 ml @ 100 mls/hr 1X ONCE IV Last administered on 06/04/20at 14:23; Start 06/04/20 at 14:15; Stop 06/04/20 at 15:14; Status DC Bupivacaine HCl/ Epinephrine Bitart (Sensorcain-Epi 0.5%-1:146096 Mpf) 30 ml STK-MED ONCE .ROUTE ; Start 06/04/20 at 14:29; Stop 06/04/20 at 14:30; Status DC Ondansetron HCl (Zofran) 4 mg PRN Q6HRS PRN IV NAUSEA/VOMITING; Start 06/04/20 at 14:45; Stop 06/04/20 at 15:15; Status DC Fentanyl Citrate (Fentanyl 2ml Vial) 25 mcg PRN Q5MIN PRN IV MILD PAIN 1-3; Start 06/04/20 at 14:45; Stop 06/04/20 at 15:15; Status DC Fentanyl Citrate (Fentanyl 2ml Vial) 50 mcg PRN Q5MIN PRN IV MODERATE TO SEVERE PAIN; Start 06/04/20 at 14:45; Stop 06/04/20 at 15:15; Status DC Morphine Sulfate (Morphine Sulfate) 1 mg PRN Q10MIN PRN IV SEVERE PAIN 7-10; Start 06/04/20 at 14:45; Stop 06/04/20 at 15:15; Status DC Ringer's Solution 1,000 ml @ 30 mls/hr Q24H IV ; Start 06/04/20 at 14:39; Stop 06/04/20 at 15:15; Status DC Lidocaine HCl (Xylocaine-Mpf 1% 2ml Vial) 2 ml PRN 1X PRN ID PRIOR TO IV START; Start 06/04/20 at 14:45; Stop 06/04/20 at 15:15; Status DC Hydromorphone HCl (Dilaudid) 0.5 mg PRN Q10MIN PRN IV SEV PAIN, Second choice; Start 06/04/20 at 14:45; Stop 06/04/20 at 15:15; Status DC Prochlorperazine Edisylate (Compazine) 5 mg PACU PRN PRN IV NAUSEA, MRX1; Start 06/04/20 at 14:45; Stop 06/04/20 at 15:15; Status DC Active Scripts Active Reported Zolpidem Tartrate 10 Mg Tablet 10 Mg PO PRN QHS PRN Allergies Allergies: Coded Allergies: Penicillins (Verified Allergy, Intermediate, 03/10/14) ROS General: No: Chills, Night Sweats, Fatigue, Malaise, Appetite, Other PSYCHOLOGICAL ROS: No: Anxiety, Behavioral Disorder, Concentration difficultie, Decreased libido, Depression, Disorientation, Hallucinations, Hostility, Irritablity, Memory difficulties, Mood Swings, Obsessive thoughts, Physical abuse, Sexual abuse, Sleep disturbances, Suicidal ideation, Other Eyes: No Blurry vision, No Decreased vision, No Double vision, No Dry eyes, No Excessive tearing, No Eye Pain, No Itchy Eyes, No Loss of vision, No Photophobia, No Scotomata, No Uses contacts, No Uses glasses, No Other HEENT: No: Heacaches, Visual Changes, Hearing change, Nasal congestion, Nasal discharge, Oral lesions, Sinus pain, Sore Throat, Epistaxis, Sneezing, Snoring, Tinnitus, Vertigo, Vocal changes, Other ALLERGY AND IMMUNOLOGY: No: Hives, Insect Bite Sensitivity, Itchy/Watery Eyes, Nasal Congestion, Post Nasal Drip, Seasonal Allergies, Other Hematological and Lymphatic: No: Bleeding Problems, Blood Clots, Blood Transfusions, Brusing, Night Sweats, Pallor, Swollen Lymph Nodes, Other Respiratory: No: Cough, Hemoptysis, Orthopnea, Pleuritic Pain, Shortness of breath, SOB with excertion, Sputum Changes, Stridor, Tachypnea, Wheezing, Other Cardiovascular: No Chest Pain, No Palpitations, No Orthopnea, No Paroxysmal Noc. Dyspnea, No Edema, No Lt Headedness, No Other Gastrointestinal: Yes Nausea, Yes Abdominal Pain Genitourinary: No Dysuria, No Frequency, No Incontinence, No Hematuria, No Retention, No Discharge, No Urgency, No Pain, No Flank Pain, No Other, No , No , No , No , No , No , No Musculoskeletal: No Gait Disturbance, No Joint Pain, No Joint Stiffness, No Joint Swelling, No Muscle Pain, No Muscular Weakness, No Pain In:, No Swelling In:, No Other Neurological: No Behavorial Changes, No Bowel/Bladder ControlChng, No Confusion, No Dizziness, No Gait Disturbance, No Headaches, No Impaired Coord/balance, No Memory Loss, No Numbness/Tingling, No Seizures, No Speech Problems, No Tremors, No Visual Changes, No Weakness, No Other Skin: No Dry Skin, No Eczema, No Hair Changes, No Lumps, No Mole Changes, No Mottling, No Nail Changes, No Pruritus, No Rash, No Skin Lesion Changes, No Other, No Acne Physical Exam General: Alert, Oriented X3, Cooperative HEENT: Atraumatic Lungs: Clear to auscultation Heart: Regular rate Abdomen: Soft (tender RLQ) Extremities: No clubbing, No cyanosis Skin: No rashes Neuro: Normal speech Psych/Mental Status: Mental status NL Vitals VITALS Vital Signs Date Time Temp Pulse Resp B/P (MAP) Pulse Ox O2 Delivery O2 Flow Rate FiO2 06/04/20 15:20 97.6 74 20 98 97.6 06/04/20 14:45 132/80 (97) Room Air Labs Labs Laboratory Tests Test 06/04/20 12:10 06/04/20 12:40 06/04/20 14:15 Urine Collection Type Unknown Urine Color Yellow Urine Clarity Clear Urine pH 6.0 (<5.0-8.0) Urine Specific [place] 1.020 (1.000-1.030) Urine Protein Negative mg/dL (NEG-TRACE) Urine Glucose (UA) Negative mg/dL (NEG) Urine Ketones (Stick) Negative mg/dL (NEG) Urine Blood Trace (NEG) Urine Nitrite Negative (NEG) Urine Bilirubin Negative (NEG) Urine Urobilinogen Dipstick 1.0 mg/dL (0.2 mg/dL) Urine Leukocyte Esterase Negative (NEG) Urine RBC 3-5 /HPF (0-2) Urine WBC 1-4 /HPF (0-4) Urine Squamous Epithelial Cells Few /LPF Urine Bacteria 0 /HPF (0-FEW) Urine Mucus Mod /LPF White Blood Count 8.3 x10^3/uL (4.0-11.0) Red Blood Count 4.53 x10^6/uL (3.50-5.40) Hemoglobin 13.0 g/dL (12.0-15.5) Hematocrit 37.7 % (36.0-47.0) Mean Corpuscular Volume 83 fL (79-100) Mean Corpuscular Hemoglobin 29 pg (25-35) Mean Corpuscular Hemoglobin Concent 35 g/dL (31-37) Red Cell Distribution Width 13.7 % (11.5-14.5) Platelet Count 309 x10^3/uL (140-400) Neutrophils (%) (Auto) 70 % (31-73) Lymphocytes (%) (Auto) 21 % (24-48) Monocytes (%) (Auto) 7 % (0-9) Eosinophils (%) (Auto) 1 % (0-3) Basophils (%) (Auto) 1 % (0-3) Neutrophils # (Auto) 5.8 x10^3/uL (1.8-7.7) Lymphocytes # (Auto) 1.7 x10^3/uL (1.0-4.8) Monocytes # (Auto) 0.6 x10^3/uL (0.0-1.1) Eosinophils # (Auto) 0.1 x10^3/uL (0.0-0.7) Basophils # (Auto) 0.1 x10^3/uL (0.0-0.2) Prothrombin Time 12.1 SEC (11.7-14.0) Prothromb Time International Ratio 0.9 (0.8-1.1) Sodium Level 140 mmol/L (136-145) Potassium Level 4.0 mmol/L (3.5-5.1) Chloride Level 104 mmol/L (98-107) Carbon Dioxide Level 27 mmol/L (21-32) Anion Gap 9 (6-14) Blood Urea Nitrogen 17 mg/dL (7-20) Creatinine 0.9 mg/dL (0.6-1.0) Estimated GFR (Cockcroft-Gault) 65.2 BUN/Creatinine Ratio 19 (6-20) Glucose Level 98 mg/dL (70-99) Calcium Level 9.1 mg/dL (8.5-10.1) Total Bilirubin 0.7 mg/dL (0.2-1.0) Aspartate Amino Transf (AST/SGOT) 40 U/L (15-37) Alanine Aminotransferase (ALT/SGPT) 56 U/L (14-59) Alkaline Phosphatase 111 U/L (46-116) Total Protein 7.5 g/dL (6.4-8.2) Albumin 4.1 g/dL (3.4-5.0) Albumin/Globulin Ratio 1.2 (1.0-1.7) Lipase 118 U/L (73-393) SARS-CoV-2 Antigen (Rapid) Negative (NEGATIVE) Laboratory Tests Test 06/04/20 12:10 06/04/20 12:40 06/04/20 14:15 Urine Collection Type Unknown Urine Color Yellow Urine Clarity Clear Urine pH 6.0 (<5.0-8.0) Urine Specific [place] 1.020 (1.000-1.030) Urine Protein Negative mg/dL (NEG-TRACE) Urine Glucose (UA) Negative mg/dL (NEG) Urine Ketones (Stick) Negative mg/dL (NEG) Urine Blood Trace (NEG) Urine Nitrite Negative (NEG) Urine Bilirubin Negative (NEG) Urine Urobilinogen Dipstick 1.0 mg/dL (0.2 mg/dL) Urine Leukocyte Esterase Negative (NEG) Urine RBC 3-5 /HPF (0-2) Urine WBC 1-4 /HPF (0-4) Urine Squamous Epithelial Cells Few /LPF Urine Bacteria 0 /HPF (0-FEW) Urine Mucus Mod /LPF White Blood Count 8.3 x10^3/uL (4.0-11.0) Red Blood Count 4.53 x10^6/uL (3.50-5.40) Hemoglobin 13.0 g/dL (12.0-15.5) Hematocrit 37.7 % (36.0-47.0) Mean Corpuscular Volume 83 fL (79-100) Mean Corpuscular Hemoglobin 29 pg (25-35) Mean Corpuscular Hemoglobin Concent 35 g/dL (31-37) Red Cell Distribution Width 13.7 % (11.5-14.5) Platelet Count 309 x10^3/uL (140-400) Neutrophils (%) (Auto) 70 % (31-73) Lymphocytes (%) (Auto) 21 % (24-48) Monocytes (%) (Auto) 7 % (0-9) Eosinophils (%) (Auto) 1 % (0-3) Basophils (%) (Auto) 1 % (0-3) Neutrophils # (Auto) 5.8 x10^3/uL (1.8-7.7) Lymphocytes # (Auto) 1.7 x10^3/uL (1.0-4.8) Monocytes # (Auto) 0.6 x10^3/uL (0.0-1.1) Eosinophils # (Auto) 0.1 x10^3/uL (0.0-0.7) Basophils # (Auto) 0.1 x10^3/uL (0.0-0.2) Prothrombin Time 12.1 SEC (11.7-14.0) Prothromb Time International Ratio 0.9 (0.8-1.1) Sodium Level 140 mmol/L (136-145) Potassium Level 4.0 mmol/L (3.5-5.1) Chloride Level 104 mmol/L (98-107) Carbon Dioxide Level 27 mmol/L (21-32) Anion Gap 9 (6-14) Blood Urea Nitrogen 17 mg/dL (7-20) Creatinine 0.9 mg/dL (0.6-1.0) Estimated GFR (Cockcroft-Gault) 65.2 BUN/Creatinine Ratio 19 (6-20) Glucose Level 98 mg/dL (70-99) Calcium Level 9.1 mg/dL (8.5-10.1) Total Bilirubin 0.7 mg/dL (0.2-1.0) Aspartate Amino Transf (AST/SGOT) 40 U/L (15-37) Alanine Aminotransferase (ALT/SGPT) 56 U/L (14-59) Alkaline Phosphatase 111 U/L (46-116) Total Protein 7.5 g/dL (6.4-8.2) Albumin 4.1 g/dL (3.4-5.0) Albumin/Globulin Ratio 1.2 (1.0-1.7) Lipase 118 U/L (73-393) SARS-CoV-2 Antigen (Rapid) Negative (NEGATIVE) Images Images CT abdomen/pelvis IMPRESSION: Uncomplicated acute appendicitis. Assessment/Plan Assessment/Plan RLQ pain, suspect appendicitis, recommend lap appy. I reviewed the details and risks of surgery with the patient. She understands and would like to proceed. JEFFREY HOOKS MD Jun 04, 2020 15:32
[2020-06-04] MEDS ORDERED: LIDOCAINE 2% PF 5 ML VIAL. ONE (15:57)
[2020-06-04] MEDS ORDERED: fentaNYL PF VIAL 100 MCG/2 ML VIAL ONE ×2 (15:57→16:43)
[2020-06-04] MEDS ORDERED: PROPOFOL 10 MG/ML (20ML) VIAL. IV ONE (15:57)
[2020-06-04] MEDS ORDERED: ROCURONIUM 50 MG/5 ML VIAL. ONE (15:57)
[2020-06-04] MEDS ORDERED: SUCCINYLCHOLINE 200 MG/10 ML VIAL. ONE (16:00)
[2020-06-04] MEDS ORDERED: GLYCOPYRROLATE 1 MG/5 ML VIAL. ONE (17:03)
[2020-06-04] MEDS ORDERED: FAMOTIDINE 20 MG/2 ML VIAL ONE (17:03)
[2020-06-04] MEDS ORDERED: NEOSTIGMINE METHYLSULFATE 5 MG/5 ML SYRINGE. ONE (17:03)
[2020-06-04] MEDS ORDERED: DEXAMETHASONE SOD PHOS 4 MG/ML VIAL ONE (17:03)
[2020-06-04] MEDS ORDERED: KETOROLAC 30 MG/ML VIAL. ONE (17:04)
[2020-06-04] MEDS ORDERED: SEVOFLURANE 61 TO 120 MINUTES. IH ONE (17:11)
--- NOTE | 2020-06-04 17:14 | PDOC4 ---
Operative Note Operative Note Preoperative Diagnosis: Acute Appendicitis Postoperative Diagnosis: Same Procedure: Laparoscopic appendectomy Surgeon: Bebeto Anesthesia: Gen. EBL: 10 mL Specimen: Appendix to pathology Drains: None Complications: None Indication: The patient is a 55-year-old female who reported to the emergency department with abdominal pain. The evaluation is consistent with acute appendicitis. The patient was offered surgical treatment with a laparoscopic appendectomy. The risks of surgery were discussed which include bleeding, infection, visceral injury, pain, anesthetic risk, potential need for additional surgery or procedure. The patient understands and would like to proceed. Description: The patient was taken to the operating room and placed supine on the operating table. Gen. anesthesia was performed. The abdomen was prepped with ChloraPrep and draped in a standard surgical manner. A supraumbilical incision was made through which a veress needle was inserted and a pneumoperitoneum was created. A visualized 5 mm trocar was inserted and the laparoscope was intr oduced. In the left lower quadrant a 5 mm trocar was inserted. In the suprapubic region a 12 mm trocar was inserted. The appendix was identified and appeared inflamed consistent with acute appendicitis. There was no clear evidence of perforation or periappendiceal abscess. The mesoappendix was bluntly from the appendix. The mesoappendix was controlled using several clips and it was divided. The appendix was then amputated off the cecum using an Endo HA 45 stapling device. The appendix was then placed in an endoscopic bag and extracted at the suprapubic incision site. The fascia there was closed with 0 Vicryl and infiltrated with half percent Marcaine with epinephrine. The RLQ was visualized and the staple line appeared well intact and hemostasis was good. No other abnormalities were identified grossly. The remaining ports were removed and the pneumoperitoneum was relieved. The skin at all incision sites was closed with 4-0 Monocryl. Steri-Strips and dressings were applied. The patient tolerated the procedure well and was sent to the recovery room in stable condition. At the end of the case all counts were correct. JEFFREY HOOKS MD Jun 04, 2020 17:14
[2020-06-04] MEDS ORDERED: oxyCODONE/APAP 5/325 1 TAB TABLET PO PRN ×2 (17:15→17:30)
[2020-06-04] MEDS ORDERED: PROCHLORPERAZINE 10 MG/2 ML VIAL. ONE (17:58)
[2020-06-04] MEDS: PROCHLORPERAZINE 10 MG/2 ML VIAL. IV PRN ×2 (18:02→18:12)
[2020-06-04] MEDS ORDERED: SCOPOLAMINE 1.5MG PATCH. TD ONE (18:45)
--- NOTE | 2020-06-04 20:17 | SSS ---
ADMIT DATE: 06/04/2020 CHIEF COMPLAINT: Abdominal pain. HISTORY OF PRESENT ILLNESS: The patient is a pleasant 55-year-old female who presented to the ER with 2 days of abdominal pain, it radiates from the umbilicus to the right lower quadrant. We did a CAT scan and confirmed appendicitis. We consulted Dr. Tate. The patient was taken for emergent laparoscopic appendectomy. She is now being examined on the medical floor where she is a recovering, we hope to discharge tomorrow morning. PAST MEDICAL AND SURGICAL HISTORY: Hypertension, hysterectomy, carpal tunnel surgery. ALLERGIES: PENICILLIN. FAMILY HISTORY: Hypertension. SOCIAL HISTORY: She does not drink, smoke or take drugs. She works as a automotive service cashier. MEDICATIONS: Reviewed, please refer to the MRAD. REVIEW OF SYSTEMS: GENERAL: No history of weight change, weakness or fevers. SKIN: No bruising, hair changes or rashes. EYES: No blurred, double or loss of vision. NOSE AND THROAT: No history of nosebleeds, hoarseness or sore throat. HEART: No history of palpitations, chest pain or shortness of breath on exertion. LUNGS: Denies cough, hemoptysis, wheezing or shortness of breath. GASTROINTESTINAL: The patient complained of abdominal pain. GENITOURINARY: No history of frequency, urgency, hesitancy or nocturia. NEUROLOGIC: Denies history of numbness, tingling, tremor or weakness. PSYCHIATRIC: No history of panic, anxiety or depression. ENDOCRINE: No history of heat or cold intolerance, polyuria or polydipsia. EXTREMITIES: Denies muscle weakness, joint pain, pain on walking or stiffness. PHYSICAL EXAMINATION: VITALS: Within normal limits and are stable. GENERAL: No apparent distress. Alert and oriented. HEENT: Normal cephalic atraumatic, external auditory canals are patent EYES: Extraocular muscles are intact, pupils are equally round and reactive to light and accommodation MUSCULOSKELETAL: Well developed, well nourished, good range of motion ENDOCRINE: No thyromegaly was palpated LYMPHATICS: No cervical chain or axillary nodes were noted HEMATOPOIETIC: No bruising NECK: Supple, no JVD, no thyromegaly was noted. LUNGS: Clear to auscultation in all lung hillman without rhonchi or wheezing. HEART: RRR, S1, S2 present. Peripheral pulses intact, no obvious murmurs were noted. ABDOMEN: She has clean, dry and intact dressings. EXTREMITIES: Without any cyanosis, clubbing, or edema. Pedal pulses intact, Homans sign is negative. NEUROLOGIC: Normal speech, normal tone. A & O x3, moves all extremities, no obvious focal deficits. PSYCHIATRIC: Normal affect, normal mood. Stable. SKIN: No ulcerations or rashes, good skin turgor, no jaundice. VASCULAR: Good capillary refill, neurovascular bundle appears to be intact. ASSESSMENT AND PLAN: Postop laparoscopic appendectomy. Clinically, she is stable. We will try to advance her diet. Wound care, home meds, DVT prophylaxis. Full IV fluids, p.r.n. pain meds, p.r.n. antiemetics. We hope to discharge in the morning. DISPOSITION: Hopefully, home in the morning. JO INFANTE DO DR: BRINDA/kimberlee JOB#: [id number] / [id number]
[2020-06-05] MEDS: ONDANSETRON PF 4 MG/2 ML VIAL. IVP PRN ×2 (02:55→09:13)
[2020-06-05 03:00] VITALS: BP 124/66
[2020-06-05 07:00] VITALS: BP 135/89
[2020-06-05 11:00] VITALS: BP 138/81
--- NOTE | 2020-06-05 11:02 | PDOC ---
PROGRESS NOTES Date of Service DATE: 06/05/20 TIME: 11:02 Subjective Subjective doing well Objective Objective Vital Signs Date Time Temp Pulse Resp B/P (MAP) Pulse Ox O2 Delivery O2 Flow Rate FiO2 06/05/20 08:00 Room Air 8.0 06/05/20 07:00 98.4 89 18 135/89 (104) 97 98.4 Intake and Output 06/05/20 07:00 Intake Total 2180 ml Output Total 390 ml Balance 1790 ml Intake Oral 130 ml IV Total 2050 ml Output Urine Total 300 ml Emesis 80 ml Estimated Blood Loss 10 ml # Voids 2 Physical Exam Abdomen: Soft Assessment Assessment Problems Medical Problems: (1) Appendicitis Status: Acute Plan Plan of Care discharge Comment Review of Relevant I have reviewed the following items hank (where applicable) has been applied. Labs Laboratory Tests Test 06/04/20 12:10 06/04/20 12:40 06/04/20 14:15 Urine Collection Type Unknown Urine Color Yellow Urine Clarity Clear Urine pH 6.0 (<5.0-8.0) Urine Specific [place] 1.020 (1.000-1.030) Urine Protein Negative mg/dL (NEG-TRACE) Urine Glucose (UA) Negative mg/dL (NEG) Urine Ketones (Stick) Negative mg/dL (NEG) Urine Blood Trace (NEG) Urine Nitrite Negative (NEG) Urine Bilirubin Negative (NEG) Urine Urobilinogen Dipstick 1.0 mg/dL (0.2 mg/dL) Urine Leukocyte Esterase Negative (NEG) Urine RBC 3-5 /HPF (0-2) Urine WBC 1-4 /HPF (0-4) Urine Squamous Epithelial Cells Few /LPF Urine Bacteria 0 /HPF (0-FEW) Urine Mucus Mod /LPF White Blood Count 8.3 x10^3/uL (4.0-11.0) Red Blood Count 4.53 x10^6/uL (3.50-5.40) Hemoglobin 13.0 g/dL (12.0-15.5) Hematocrit 37.7 % (36.0-47.0) Mean Corpuscular Volume 83 fL (79-100) Mean Corpuscular Hemoglobin 29 pg (25-35) Mean Corpuscular Hemoglobin Concent 35 g/dL (31-37) Red Cell Distribution Width 13.7 % (11.5-14.5) Platelet Count 309 x10^3/uL (140-400) Neutrophils (%) (Auto) 70 % (31-73) Lymphocytes (%) (Auto) 21 % (24-48) Monocytes (%) (Auto) 7 % (0-9) Eosinophils (%) (Auto) 1 % (0-3) Basophils (%) (Auto) 1 % (0-3) Neutrophils # (Auto) 5.8 x10^3/uL (1.8-7.7) Lymphocytes # (Auto) 1.7 x10^3/uL (1.0-4.8) Monocytes # (Auto) 0.6 x10^3/uL (0.0-1.1) Eosinophils # (Auto) 0.1 x10^3/uL (0.0-0.7) Basophils # (Auto) 0.1 x10^3/uL (0.0-0.2) Prothrombin Time 12.1 SEC (11.7-14.0) Prothromb Time International Ratio 0.9 (0.8-1.1) Sodium Level 140 mmol/L (136-145) Potassium Level 4.0 mmol/L (3.5-5.1) Chloride Level 104 mmol/L (98-107) Carbon Dioxide Level 27 mmol/L (21-32) Anion Gap 9 (6-14) Blood Urea Nitrogen 17 mg/dL (7-20) Creatinine 0.9 mg/dL (0.6-1.0) Estimated GFR (Cockcroft-Gault) 65.2 BUN/Creatinine Ratio 19 (6-20) Glucose Level 98 mg/dL (70-99) Calcium Level 9.1 mg/dL (8.5-10.1) Total Bilirubin 0.7 mg/dL (0.2-1.0) Aspartate Amino Transf (AST/SGOT) 40 U/L (15-37) Alanine Aminotransferase (ALT/SGPT) 56 U/L (14-59) Alkaline Phosphatase 111 U/L (46-116) Total Protein 7.5 g/dL (6.4-8.2) Albumin 4.1 g/dL (3.4-5.0) Albumin/Globulin Ratio 1.2 (1.0-1.7) Lipase 118 U/L (73-393) Coronavirus (PCR) Not detected (Not Detected) SARS-CoV-2 Antigen (Rapid) Negative (NEGATIVE) Laboratory Tests Test 06/04/20 12:10 06/04/20 12:40 06/04/20 14:15 Urine Collection Type Unknown Urine Color Yellow Urine Clarity Clear Urine pH 6.0 (<5.0-8.0) Urine Specific [place] 1.020 (1.000-1.030) Urine Protein Negative mg/dL (NEG-TRACE) Urine Glucose (UA) Negative mg/dL (NEG) Urine Ketones (Stick) Negative mg/dL (NEG) Urine Blood Trace (NEG) Urine Nitrite Negative (NEG) Urine Bilirubin Negative (NEG) Urine Urobilinogen Dipstick 1.0 mg/dL (0.2 mg/dL) Urine Leukocyte Esterase Negative (NEG) Urine RBC 3-5 /HPF (0-2) Urine WBC 1-4 /HPF (0-4) Urine Squamous Epithelial Cells Few /LPF Urine Bacteria 0 /HPF (0-FEW) Urine Mucus Mod /LPF White Blood Count 8.3 x10^3/uL (4.0-11.0) Red Blood Count 4.53 x10^6/uL (3.50-5.40) Hemoglobin 13.0 g/dL (12.0-15.5) Hematocrit 37.7 % (36.0-47.0) Mean Corpuscular Volume 83 fL (79-100) Mean Corpuscular Hemoglobin 29 pg (25-35) Mean Corpuscular Hemoglobin Concent 35 g/dL (31-37) Red Cell Distribution Width 13.7 % (11.5-14.5) Platelet Count 309 x10^3/uL (140-400) Neutrophils (%) (Auto) 70 % (31-73) Lymphocytes (%) (Auto) 21 % (24-48) Monocytes (%) (Auto) 7 % (0-9) Eosinophils (%) (Auto) 1 % (0-3) Basophils (%) (Auto) 1 % (0-3) Neutrophils # (Auto) 5.8 x10^3/uL (1.8-7.7) Lymphocytes # (Auto) 1.7 x10^3/uL (1.0-4.8) Monocytes # (Auto) 0.6 x10^3/uL (0.0-1.1) Eosinophils # (Auto) 0.1 x10^3/uL (0.0-0.7) Basophils # (Auto) 0.1 x10^3/uL (0.0-0.2) Prothrombin Time 12.1 SEC (11.7-14.0) Prothromb Time International Ratio 0.9 (0.8-1.1) Sodium Level 140 mmol/L (136-145) Potassium Level 4.0 mmol/L (3.5-5.1) Chloride Level 104 mmol/L (98-107) Carbon Dioxide Level 27 mmol/L (21-32) Anion Gap 9 (6-14) Blood Urea Nitrogen 17 mg/dL (7-20) Creatinine 0.9 mg/dL (0.6-1.0) Estimated GFR (Cockcroft-Gault) 65.2 BUN/Creatinine Ratio 19 (6-20) Glucose Level 98 mg/dL (70-99) Calcium Level 9.1 mg/dL (8.5-10.1) Total Bilirubin 0.7 mg/dL (0.2-1.0) Aspartate Amino Transf (AST/SGOT) 40 U/L (15-37) Alanine Aminotransferase (ALT/SGPT) 56 U/L (14-59) Alkaline Phosphatase 111 U/L (46-116) Total Protein 7.5 g/dL (6.4-8.2) Albumin 4.1 g/dL (3.4-5.0) Albumin/Globulin Ratio 1.2 (1.0-1.7) Lipase 118 U/L (73-393) Coronavirus (PCR) Not detected (Not Detected) SARS-CoV-2 Antigen (Rapid) Negative (NEGATIVE) Medications Current Medications Sodium Chloride 1,000 ml @ 1,000 mls/hr Q1H IV Last administered on 06/04/20at 12:47; Start 06/04/20 at 12:22; Stop 06/04/20 at 13:21; Status DC Fentanyl Citrate (Fentanyl 2ml Vial) 50 mcg 1X ONCE IVP Last administered on 06/04/20at 12:48; Start 06/04/20 at 12:30; Stop 06/04/20 at 12:31; Status DC Ondansetron HCl (Zofran) 4 mg STK-MED ONCE .ROUTE ; Start 06/04/20 at 13:01; Stop 06/04/20 at 13:02; Status DC Ondansetron HCl (Zofran) 4 mg 1X ONCE IVP Last administered on 06/04/20at 13:04; Start 06/04/20 at 13:15; Stop 06/04/20 at 13:16; Status DC Iohexol (Omnipaque 300 Mg/ml) 75 ml 1X ONCE IV Last administered on 06/04/20at 13:20; Start 06/04/20 at 13:15; Stop 06/04/20 at 13:16; Status DC Prochlorperazine Edisylate (Compazine) 10 mg 1X ONCE IV Last administered on 06/04/20at 13:45; Start 06/04/20 at 13:45; Stop 06/04/20 at 13:46; Status DC Levofloxacin/ Dextrose 150 ml @ 100 mls/hr 1X ONCE IV Last administered on 06/04/20at 14:28; Start 06/04/20 at 14:15; Stop 06/04/20 at 17:06; Status DC Metronidazole 100 ml @ 100 mls/hr 1X ONCE IV Last administered on 06/04/20at 14:23; Start 06/04/20 at 14:15; Stop 06/04/20 at 15:14; Status DC Bupivacaine HCl/ Epinephrine Bitart (Sensorcain-Epi 0.5%-1:917123 Mpf) 30 ml STK-MED ONCE .ROUTE Last administered on 06/04/20at 16:37; Start 06/04/20 at 14:29; Stop 06/04/20 at 14:30; Status DC Ondansetron HCl (Zofran) 4 mg PRN Q6HRS PRN IV NAUSEA/VOMITING Last administered on 06/04/20at 18:30; Start 06/04/20 at 14:45; Stop 06/04/20 at 22:44; Status DC Fentanyl Citrate (Fentanyl 2ml Vial) 25 mcg PRN Q5MIN PRN IV MILD PAIN 1-3; Start 06/04/20 at 14:45; Stop 06/05/20 at 14:44 Fentanyl Citrate (Fentanyl 2ml Vial) 50 mcg PRN Q5MIN PRN IV MODERATE TO SEVERE PAIN; Start 06/04/20 at 14:45; Stop 9/19/20 at 14:44 Morphine Sulfate (Morphine Sulfate) 1 mg PRN Q10MIN PRN IV SEVERE PAIN 7-10; Start 06/04/20 at 14:45; Stop 06/05/20 at 14:44 Ringer's Solution 1,000 ml @ 30 mls/hr Q24H IV ; Start 06/04/20 at 14:39; Stop 06/05/20 at 02:38; Status DC Lidocaine HCl (Xylocaine-Mpf 1% 2ml Vial) 2 ml PRN 1X PRN ID PRIOR TO IV START; Start 06/04/20 at 14:45; Stop 06/05/20 at 14:44 Hydromorphone HCl (Dilaudid) 0.5 mg PRN Q10MIN PRN IV SEV PAIN, Second choice; Start 06/04/20 at 14:45; Stop 06/05/20 at 14:44 Prochlorperazine Edisylate (Compazine) 5 mg PACU PRN PRN IV NAUSEA, MRX1 Last administered on 06/04/20at 18:12; Start 06/04/20 at 14:45; Stop 06/05/20 at 14:44 Propofol (Diprivan) 200 mg STK-MED ONCE IV ; Start 06/04/20 at 15:57; Stop 06/04/20 at 15:57; Status DC Lidocaine HCl (Lidocaine Pf 2% Vial) 5 ml STK-MED ONCE .ROUTE ; Start 06/04/20 at 15:57; Stop 06/04/20 at 15:57; Status DC Rocuronium [place] (Zemuron) 50 mg STK-MED ONCE .ROUTE ; Start 06/04/20 at 15:57; Stop 06/04/20 at 15:57; Status DC Fentanyl Citrate (Fentanyl 2ml Vial) 100 mcg STK-MED ONCE .ROUTE ; Start 06/04/20 at 15:57; Stop 06/04/20 at 15:57; Status DC Succinylcholine Chloride (Anectine) 200 mg STK-MED ONCE .ROUTE ; Start 06/04/20 at 16:00; Stop 06/04/20 at 16:00; Status DC Fentanyl Citrate (Fentanyl 2ml Vial) 100 mcg STK-MED ONCE .ROUTE ; Start 06/04/20 at 16:43; Stop 06/04/20 at 16:43; Status DC Dexamethasone Sodium Phosphate (Decadron) 4 mg STK-MED ONCE .ROUTE ; Start 06/04/20 at 17:03; Stop 06/04/20 at 17:03; Status DC Famotidine (Pepcid Vial) 20 mg STK-MED ONCE .ROUTE ; Start 06/04/20 at 17:03; Stop 06/04/20 at 17:03; Status DC Ondansetron HCl (Zofran) 4 mg STK-MED ONCE .ROUTE ; Start 06/04/20 at 17:03; Stop 06/04/20 at 17:03; Status DC Glycopyrrolate (Robinul) 1 mg STK-MED ONCE .ROUTE ; Start 06/04/20 at 17:03; Stop 06/04/20 at 17:03; Status DC Neostigmine [place] (Neostigmine Methylsulfate) 5 mg STK-MED ONCE .ROUTE ; Start 06/04/20 at 17:03; Stop 06/04/20 at 17:03; Status DC Ketorolac Tromethamine (Toradol 30mg Vial) 30 mg STK-MED ONCE .ROUTE ; Start 06/04/20 at 17:04; Stop 06/04/20 at 17:04; Status DC Sevoflurane (Ultane) 60 ml STK-MED ONCE IH ; Start 06/04/20 at 17:11; Stop 06/04/20 at 17:11; Status DC Oxycodone/ Acetaminophen (Percocet 5/325) 1 tab PRN Q4HRS PRN PO MODERATE PAIN; Start 06/04/20 at 17:15 Oxycodone/ Acetaminophen (Percocet 5/325) 2 tab PRN Q4HRS PRN PO SEVERE PAIN; Start 06/04/20 at 17:30 Prochlorperazine Edisylate (Compazine) 10 mg STK-MED ONCE .ROUTE ; Start 06/04/20 at 17:58; Stop 06/04/20 at 17:58; Status DC Scopolamine (Transderm-Scop) 1 patch 1X ONCE TD Last administered on 06/04/20at 19:14; Start 06/04/20 at 18:45; Stop 06/04/20 at 18:54; Status DC Ondansetron HCl (Zofran) 4 mg PRN Q6HRS PRN IVP NAUSEA/VOMITING Last administe red on 06/05/20at 09:13; Start 06/04/20 at 22:45 Active Scripts Active Reported Zolpidem Tartrate 10 Mg Tablet 10 Mg PO PRN QHS PRN Vitals/I & O Vital Sign - Last 24 Hours 06/04/20 06/04/20 06/04/20 06/04/20 12:27 12:48 13:45 14:45 Temp 98.9 98.9 Pulse 83 84 74 Resp 18 16 18 18 B/P (MAP) 149/85 (106) 149/85 (106) 132/80 (97) Pulse Ox 99 100 98 100 O2 Delivery Room Air Room Air Room Air Room Air 06/04/20 06/04/20 06/04/20 06/04/20 15:20 15:28 17:25 17:40 Temp 97.6 97.6 97.7 97.7 97.6 97.6 97.7 97.7 Pulse 74 74 84 64 Resp 20 16 20 22 B/P (MAP) 151/77 123/59 123/59 Pulse Ox 98 98 100 100 O2 Delivery Room Air Simple Mask Simple Mask O2 Flow Rate 8 8 06/04/20 06/04/20 06/04/20 06/04/20 17:55 18:10 18:25 18:40 Temp 97.7 97.7 97.7 97.6 97.7 97.7 97.7 97.6 Pulse 88 85 82 82 Resp 21 24 20 16 B/P (MAP) 132/70 128/60 128/64 136/82 (100) Pulse Ox 100 97 97 96 O2 Delivery Room Air Room Air Room Air Room Air 06/04/20 06/04/20 06/04/20 06/04/20 18:45 19:00 19:15 19:30 Temp 97.7 97.7 Pulse 84 73 81 79 Resp 16 17 17 17 B/P (MAP) 113/68 (83) 126/73 (90) 119/71 (87) 116/69 (85) Pulse Ox 95 98 98 98 O2 Delivery Room Air Room Air Room Air Room Air 06/04/20 06/04/20 06/04/20 06/04/20 20:00 20:30 21:30 22:30 Temp 97.4 97.4 Pulse 64 71 64 65 Resp 17 18 B/P (MAP) 107/65 (79) 128/76 (93) 110/66 (81) 109/65 (80) Pulse Ox 99 99 100 99 O2 Delivery Room Air Room Air Room Air Room Air 06/04/20 06/05/20 06/05/20 06/05/20 23:10 03:00 07:00 08:00 Temp 97.4 98.0 98.4 97.4 98.0 98.4 Pulse 64 66 89 Resp 17 18 18 B/P (MAP) 139/79 (99) 124/66 (85) 135/89 (104) Pulse Ox 96 98 97 O2 Delivery Room Air Room Air Room Air Room Air O2 Flow Rate 8.0 Intake and Output 06/04/20 06/04/20 06/05/20 15:00 23:00 07:00 Intake Total 1000 ml 1080 ml 100 ml Output Total 360 ml 30 ml Balance 1000 ml 720 ml 70 ml Justifications for Admission Other Justification JEFFREY HOOKS MD Jun 05, 2020 11:02
--- NOTE | 2020-06-05 12:24 | PDOC ---
[employer] PROGRESS NOTE Date of Service DOS: DATE: 06/05/20 TIME: 12:16 Chief Complaint Chief Complaint Appendicitis, cellulitis History of Present Illness History of Present Illness 06/05/2020 Patient seen and examined in the patient room Patient tolerates toast DW patient's DW RN Vitals/I&O Vitals/I&O: Vital Signs Date Time Temp Pulse Resp B/P (MAP) Pulse Ox O2 Delivery O2 Flow Rate FiO2 06/05/20 11:00 98.8 87 18 138/81 (100) 100 Room Air 98.8 06/05/20 08:00 8.0 I & O 06/04/20 06/04/20 06/05/20 15:00 23:00 07:00 Intake Total 1000 ml 1080 ml 100 ml Output Total 360 ml 30 ml Balance 1000 ml 720 ml 70 ml Physical Exam General: Alert, Oriented X3, Cooperative Heart: Regular rate, Normal S1, Normal S2 Lungs: Clear Abdomen: Soft, Other (cleaned at surgical insicision site) Extremities: No clubbing, No cyanosis Skin: No rashes, No breakdown Labs Labs: Laboratory Tests Test 06/04/20 12:40 06/04/20 14:15 White Blood Count 8.3 x10^3/uL (4.0-11.0) Red Blood Count 4.53 x10^6/uL (3.50-5.40) Hemoglobin 13.0 g/dL (12.0-15.5) Hematocrit 37.7 % (36.0-47.0) Mean Corpuscular Volume 83 fL (79-100) Mean Corpuscular Hemoglobin 29 pg (25-35) Mean Corpuscular Hemoglobin Concent 35 g/dL (31-37) Red Cell Distribution Width 13.7 % (11.5-14.5) Platelet Count 309 x10^3/uL (140-400) Neutrophils (%) (Auto) 70 % (31-73) Lymphocytes (%) (Auto) 21 % (24-48) Monocytes (%) (Auto) 7 % (0-9) Eosinophils (%) (Auto) 1 % (0-3) Basophils (%) (Auto) 1 % (0-3) Neutrophils # (Auto) 5.8 x10^3/uL (1.8-7.7) Lymphocytes # (Auto) 1.7 x10^3/uL (1.0-4.8) Monocytes # (Auto) 0.6 x10^3/uL (0.0-1.1) Eosinophils # (Auto) 0.1 x10^3/uL (0.0-0.7) Basophils # (Auto) 0.1 x10^3/uL (0.0-0.2) Prothrombin Time 12.1 SEC (11.7-14.0) Prothromb Time International Ratio 0.9 (0.8-1.1) Sodium Level 140 mmol/L (136-145) Potassium Level 4.0 mmol/L (3.5-5.1) Chloride Level 104 mmol/L (98-107) Carbon Dioxide Level 27 mmol/L (21-32) Anion Gap 9 (6-14) Blood Urea Nitrogen 17 mg/dL (7-20) Creatinine 0.9 mg/dL (0.6-1.0) Estimated GFR (Cockcroft-Gault) 65.2 BUN/Creatinine Ratio 19 (6-20) Glucose Level 98 mg/dL (70-99) Calcium Level 9.1 mg/dL (8.5-10.1) Total Bilirubin 0.7 mg/dL (0.2-1.0) Aspartate Amino Transf (AST/SGOT) 40 U/L (15-37) Alanine Aminotransferase (ALT/SGPT) 56 U/L (14-59) Alkaline Phosphatase 111 U/L (46-116) Total Protein 7.5 g/dL (6.4-8.2) Albumin 4.1 g/dL (3.4-5.0) Albumin/Globulin Ratio 1.2 (1.0-1.7) Lipase 118 U/L (73-393) Coronavirus (PCR) Not detected (Not Detected) SARS-CoV-2 Antigen (Rapid) Negative (NEGATIVE) Review of Systems Review of Systems: No vomiting No dizziness Assessment and Plan Assessmemt and Plan 06/05/2020 Assessment: 1) Appendicitis 2) Cellulitis Plan: 1) Discharge today if okay with surgery 2) Wound care management 3) DVT prophylaxis 4) Subspecialty input is appreciated 5) Home meds Problems Medical Problems: (1) Appendicitis Status: Acute Comment Review of Relevant I have reviewed the following items hank (where applicable) has been applied. Medications: Current Medications Medications (Trade) Dose Ordered Sig/Zeeshan Route PRN Reason Start Time Stop Time Status Last Admin Dose Admin Sodium Chloride 1,000 ml @ 1,000 mls/hr Q1H IV 06/04/20 12:22 06/04/20 13:21 DC 06/04/20 12:47 Fentanyl Citrate (Fentanyl 2ml Vial) 50 mcg 1X ONCE IVP 06/04/20 12:30 06/04/20 12:31 DC 06/04/20 12:48 Ondansetron HCl (Zofran) 4 mg 1X ONCE IVP 06/04/20 13:15 06/04/20 13:16 DC 06/04/20 13:04 Iohexol (Omnipaque 300 Mg/ml) 75 ml 1X ONCE IV 06/04/20 13:15 06/04/20 13:16 DC 06/04/20 13:20 Prochlorperazine Edisylate (Compazine) 10 mg 1X ONCE IV 06/04/20 13:45 06/04/20 13:46 DC 06/04/20 13:45 Levofloxacin/ Dextrose 150 ml @ 100 mls/hr 1X ONCE IV 06/04/20 14:15 06/04/20 17:06 DC 06/04/20 14:28 Metronidazole 100 ml @ 100 mls/hr 1X ONCE IV 06/04/20 14:15 06/04/20 15:14 DC 06/04/20 14:23 Bupivacaine HCl/ Epinephrine Bitart (Sensorcain-Epi 0.5%-1:561750 Mpf) 30 ml STK-MED ONCE .ROUTE 06/04/20 14:29 06/04/20 14:30 DC 06/04/20 16:37 Ondansetron HCl (Zofran) 4 mg PRN Q6HRS PRN IV NAUSEA/VOMITING 06/04/20 14:45 06/04/20 22:44 DC 06/04/20 18:30 Prochlorperazine Edisylate (Compazine) 5 mg PACU PRN PRN IV NAUSEA, MRX1 06/04/20 14:45 06/05/20 14:44 06/04/20 18:12 Scopolamine (Transderm-Scop) 1 patch 1X ONCE TD 06/04/20 18:45 06/04/20 18:54 DC 06/04/20 19:14 Ondansetron HCl (Zofran) 4 mg PRN Q6HRS PRN IVP NAUSEA/VOMITING 06/04/20 22:45 06/05/20 09:13 Justifications for Admission Other Justification JO INFANTE III DO Jun 05, 2020 12:24
--- NOTE | 2020-06-05 14:45 | NUR ---
Discharge teaching completed. 2 IV sites discontinued without difficulty. Lap sites rebandaged and taught pt wound care and follow up instructions. She states she understands her discharge instructions. Patient was discharged to home with family; escorted out via w/c by staff.
== END 2020-06-05 14:45 | disposition home or self-care (01) | DRG 342 ==
LOC: ER 12:13 → 4 NORTH 14:16 → ER 15:15
PROVIDERS: ADMIT Internal Medicine; ATTEND Internal Medicine
PROC: 0DTJ4ZZ Resection of Appendix, Percutaneous Endoscopic Approach (ICD-10-PCS; principal; 2020-06-04 15:00)
DX: K35.80 Unspecified acute appendicitis (principal); L03.90 Cellulitis, unspecified; I10 Essential (primary) hypertension; Z82.49 Family history of ischemic heart disease and other diseases of the circulatory system; Z90.710 Acquired absence of both cervix and uterus; Z88.0 Allergy status to penicillin; Z20.828 Contact with and (suspected) exposure to other viral communicable diseases
CPT/HCPCS: 36415; 74177; 80053; 81001; 83690; 85025; 85610; 87426; 96361; 96365; 96368; 96375; 99285; J0330; J0780; J1100; J1885; J1956; J2405; J2704; J2710; J3010; J3490; J7030; Q9967; G0378; U0003-CS